=== PATIENT | female | born 1945 | race Caucasian/White ===

== ENCOUNTER → 2016-12-06 | Outpatient (REF) | payer MEDICARE, BC ==
[2016-12-06 18:11] LABS: MEAN CORPUSCULAR HEMOGLOBIN 28.7 pg (27.0-33.0); RED CELL DISTRIBUTION WIDTH 14.3 % (11.5-14.5); WHITE BLOOD COUNT 7.8 K/mm3 (4.0-10.0)
[2016-12-06 18:12] LABS: ALBUMIN 4.2 GM/DL (3.2-5.2); ALBUMIN/GLOBULIN RATIO 1.35 (1.00-1.93); ALKALINE PHOSPHATASE 84 U/L (45-117); ALT/SGPT 18 U/L (12-78); ANION GAP 8 MEQ/L (8-16); AST/SGOT 8 U/L (15-37); BILIRUBIN,TOTAL 0.8 MG/DL (0.2-1.0); BLOOD UREA NITROGEN 20 MG/DL (7-18); CALCIUM LEVEL 9.5 MG/DL (8.8-10.2); CARBON DIOXIDE LEVEL 31 MEQ/L (21-32); CHLORIDE LEVEL 102 MEQ/L (98-107); CHOLESTEROL LEVEL 318 MG/DL (<200); CREATININE FOR GFR 0.85 MG/DL (0.55-1.02); GLOMERULAR FILTRATION RATE > 60.0 (>39); GLUCOSE, FASTING 100 MG/DL (83-110); POTASSIUM SERUM 4.6 MEQ/L (3.5-5.1); SODIUM LEVEL 141 MEQ/L (136-145); TOTAL PROTEIN 7.3 GM/DL (6.4-8.2); TRIGLYCERIDES LEVEL 274 MG/DL (<150)
== END ==
LOC: M SFHCLERA 09:53
PROVIDERS: ATTEND Family Medicine
DX: E11.42 Type 2 diabetes mellitus with diabetic polyneuropathy (principal); E78.2 Mixed hyperlipidemia
CPT/HCPCS: 80053; 80061; 83036; 85027; G0463

== ENCOUNTER → 2017-03-06 | Outpatient (REF) | payer MEDICARE, BC ==
[2017-03-06 19:08] LABS: MEAN CORPUSCULAR HGB CONC 33.4 g/dl (32.0-36.5); MEAN CORPUSCULAR VOLUME 89.8 fl (80.0-96.0); RED CELL DISTRIBUTION WIDTH 13.5 % (11.5-14.5); WHITE BLOOD COUNT 8.5 K/mm3 (4.0-10.0)
[2017-03-06 19:10] LABS: ALBUMIN 4.4 GM/DL (3.2-5.2); ALBUMIN/GLOBULIN RATIO 1.26 (1.00-1.93); ALKALINE PHOSPHATASE 84 U/L (45-117); ALT/SGPT 21 U/L (12-78); ANION GAP 8 MEQ/L (8-16); AST/SGOT 15 U/L (15-37); BILIRUBIN,TOTAL 0.9 MG/DL (0.2-1.0); BLOOD UREA NITROGEN 14 MG/DL (7-18); CALCIUM LEVEL 9.6 MG/DL (8.8-10.2); CARBON DIOXIDE LEVEL 32 MEQ/L (21-32); CHLORIDE LEVEL 98 MEQ/L (98-107); CHOLESTEROL LEVEL 232 MG/DL (<200); CREATININE FOR GFR 0.72 MG/DL (0.55-1.02); GLOMERULAR FILTRATION RATE > 60.0 (>39); GLUCOSE, FASTING 112 MG/DL (83-110); POTASSIUM SERUM 4.2 MEQ/L (3.5-5.1); SODIUM LEVEL 138 MEQ/L (136-145); TOTAL PROTEIN 7.9 GM/DL (6.4-8.2); TRIGLYCERIDES LEVEL 265 MG/DL (<150)
== END ==
LOC: M SFHCLERA 11:06
PROVIDERS: ATTEND Family Medicine
DX: E11.9 Type 2 diabetes mellitus without complications (principal)
CPT/HCPCS: 80053; 80061; 83036; 85027; G0463

== ENCOUNTER → 2017-05-16 | Outpatient (CLI) | payer MEDICARE, BC ==
[2017-05-16 10:21] LABS: MEAN CORPUSCULAR HEMOGLOBIN 30.2 pg (27.0-33.0); MEAN CORPUSCULAR HGB CONC 33.7 g/dl (32.0-36.5); MEAN CORPUSCULAR VOLUME 89.7 fl (80.0-96.0); RED CELL DISTRIBUTION WIDTH 12.8 % (11.5-14.5); WHITE BLOOD COUNT 5.8 K/mm3 (4.0-10.0)
[2017-05-16 10:39] LABS: ALBUMIN 3.8 GM/DL (3.2-5.2); ALBUMIN/GLOBULIN RATIO 1.06 (1.00-1.93); ALKALINE PHOSPHATASE 70 U/L (45-117); ALT/SGPT 23 U/L (12-78); ANION GAP 6 MEQ/L (8-16); AST/SGOT 29 U/L (15-37); BILIRUBIN,TOTAL 0.6 MG/DL (0.2-1.0); BLOOD UREA NITROGEN 11 MG/DL (7-18); CALCIUM LEVEL 9.2 MG/DL (8.8-10.2); CARBON DIOXIDE LEVEL 32 MEQ/L (21-32); CHLORIDE LEVEL 104 MEQ/L (98-107); CHOLESTEROL LEVEL 193 MG/DL (<200); CREATININE FOR GFR 0.68 MG/DL (0.55-1.02); GLOMERULAR FILTRATION RATE > 60.0 (>39); GLUCOSE, FASTING 102 MG/DL (83-110); SODIUM LEVEL 142 MEQ/L (136-145); TOTAL PROTEIN 7.4 GM/DL (6.4-8.2); TRIGLYCERIDES LEVEL 274 MG/DL (<150)
--- NOTE | 2017-05-20 16:34 | REPMRS ---
Patient History The patient states she has not had a clinical breast exam in over a year. Patient is postmenopausal. No known family history of cancer. Digital Mammo Screening Bilat: May 16, 2017 - Exam #: [id number] Bilateral CC and MLO view(s) were taken. Technologist: Betty Spain, Technologist Prior study comparison: 2011, digital bilateral screening mammo, [facility]. August 02, 2008, digital bilateral screening mammo, performed at [facility]. FINDINGS: The breast tissue is heterogeneously dense. This may lower the sensitivity of mammography. There is a moderate amount of heterogeneously dense fibroglandular tissue which is fairly symmetric. There is no interval development of dominant mass, architectural distortion, or clustered microcalcification typical of malignancy. There has been no change in the appearance of the mammogram from the prior studies. ASSESSMENT: BI-RADS/ACR category 1 mammogram. Negative. Recommendation Routine screening mammogram of both breasts in 1 year (for women over age 40). This mammogram was interpreted with the aid of an FDA-approved computer-aided dectection system. Electronically Signed By: Freddy Burnett MD 05/20/17 [id number]
== END ==
LOC: M RAD 08:56 → M LAB 08:56
PROVIDERS: ATTEND Family Medicine
DX: Z12.31 Encounter for screening mammogram for malignant neoplasm of breast (principal); E78.00 Pure hypercholesterolemia, unspecified
CPT/HCPCS: 36415; 80053; 80061; 85027; G0202

== ENCOUNTER → 2017-12-12 | Outpatient (REF) | payer MEDICARE ==
[2017-12-12 19:19] LABS: ANION GAP 8 MEQ/L (8-16); BLOOD UREA NITROGEN 17 MG/DL (7-18); CALCIUM LEVEL 9.4 MG/DL (8.8-10.2); CARBON DIOXIDE LEVEL 32 MEQ/L (21-32); CHLORIDE LEVEL 100 MEQ/L (98-107); CREATININE FOR GFR 0.91 MG/DL (0.55-1.02); GLOMERULAR FILTRATION RATE > 60.0 (>39); GLUCOSE, FASTING 122 MG/DL (83-110); POTASSIUM SERUM 3.6 MEQ/L (3.5-5.1); SODIUM LEVEL 140 MEQ/L (136-145)
[2017-12-12 19:31] LABS: CREATININE, URINE 95.1 MG/DL; MALB URINE SIEMENS 6.6 MG/L; MAU/CREAT RATIO 6.9 MCG/MG (0.0-30.0)
[2017-12-12 19:40] LABS: ESTIMATED AVERAGE GLUCOSE 126 MG/DL (60-110)
== END ==
LOC: M SFHCLERA 15:23
DX: E11.42 Type 2 diabetes mellitus with diabetic polyneuropathy (principal); I10 Essential (primary) hypertension
CPT/HCPCS: 84443

== ENCOUNTER → 2018-01-10 | Outpatient (REF) | payer MEDICARE ==
[2018-01-10 11:45] LABS: BASO % 0.5 % (0.0-1.0); EOS # 0.1 10^3/uL (0.0-0.50); HEMATOCRIT 40.5 % (36.0-47.0); HEMOGLOBIN 13.8 g/dl (12.0-16.0); IMMATURE GRANULOCYTE % 0.4 % (0-3.0); LYMPH # 1.7 10^3/uL (1.5-4.5); LYMPH % 20.9 % (24.0-44.0); MEAN CORPUSCULAR HEMOGLOBIN 30.3 pg (27.0-33.0); MEAN CORPUSCULAR HGB CONC 34.1 g/dl (32.0-36.5); MEAN CORPUSCULAR VOLUME 88.8 fl (80.0-96.0); MONO # 0.6 10^3/uL (0.0-0.8); NEUTROPHILS # 5.6 10^3/uL (1.8-7.7); NEUTROPHILS % 70.2 % (36.0-66.0); PLATELET COUNT, AUTOMATED 342 10^3/uL (150-450); RED BLOOD COUNT 4.56 10^6/uL (4.00-5.40); RED CELL DISTRIBUTION WIDTH 12.6 % (11.5-14.5)
[2018-01-10 12:38] LABS: ANION GAP 8 MEQ/L (8-16); BLOOD UREA NITROGEN 13 MG/DL (7-18); CALCIUM LEVEL 9.5 MG/DL (8.8-10.2); CARBON DIOXIDE LEVEL 32 MEQ/L (21-32); CHLORIDE LEVEL 96 MEQ/L (98-107); CREATININE FOR GFR 0.87 MG/DL (0.55-1.30); GLOMERULAR FILTRATION RATE > 60.0 (>39); GLUCOSE, FASTING 111 MG/DL (70-100); POTASSIUM SERUM 4.1 MEQ/L (3.5-5.1); SODIUM LEVEL 136 MEQ/L (136-145)
== END ==
LOC: M LRY 11:28
DX: Z98.61 Coronary angioplasty status (principal); I10 Essential (primary) hypertension
CPT/HCPCS: 80048

== ENCOUNTER → 2018-05-12 | Outpatient (REF) | payer MEDICARE ==
[2018-05-12 12:27] LABS: ALBUMIN 3.8 GM/DL (3.2-5.2); ALBUMIN/GLOBULIN RATIO 1.19 (1.00-1.93); ALKALINE PHOSPHATASE 67 U/L (45-117); ALT/SGPT 25 U/L (12-78); ANION GAP 8 MEQ/L (8-16); AST/SGOT 14 U/L (7-37); BILIRUBIN,TOTAL 0.8 MG/DL (0.2-1.0); BLOOD UREA NITROGEN 16 MG/DL (7-18); CALCIUM LEVEL 9.3 MG/DL (8.8-10.2); CARBON DIOXIDE LEVEL 31 MEQ/L (21-32); CHLORIDE LEVEL 103 MEQ/L (98-107); CHOLESTEROL LEVEL 150 MG/DL (<200); CHOLESTEROL RISK RATIO 2.586 (<5); GLOMERULAR FILTRATION RATE > 60.0 (>39); GLUCOSE, FASTING 115 MG/DL (70-100); HDL CHOLESTEROL 58 MG/DL (>40); NON-HDL-C 92 MG/DL; POTASSIUM SERUM 4.6 MEQ/L (3.5-5.1); SODIUM LEVEL 142 MEQ/L (136-145); TRIGLYCERIDES LEVEL 150 MG/DL (<150)
[2018-05-12 17:32] LABS: ESTIMATED AVERAGE GLUCOSE 126 MG/DL (60-110)
== END ==
LOC: M SFHCLERA 09:26
DX: E11.42 Type 2 diabetes mellitus with diabetic polyneuropathy (principal)
CPT/HCPCS: 80053

== ENCOUNTER → 2018-05-30 | Outpatient (CLI) | payer MEDICARE ==
[2018-05-30 11:45] LABS: HEMATOCRIT 38.6 % (36.0-47.0); HEMOGLOBIN 12.9 g/dl (12.0-15.5); MEAN CORPUSCULAR HEMOGLOBIN 29.5 pg (27.0-33.0); MEAN CORPUSCULAR HGB CONC 33.4 g/dl (32.0-36.5); MEAN CORPUSCULAR VOLUME 88.3 fl (80.0-96.0); PLATELET COUNT, AUTOMATED 292 10^3/uL (150-450); RED BLOOD COUNT 4.37 10^6/uL (4.00-5.40); RED CELL DISTRIBUTION WIDTH 12.8 % (11.5-14.5)
[2018-05-30 12:18] LABS: CHOLESTEROL LEVEL 259 MG/DL (<200); CPK CREATINE PHOSPHOKINASE 64 U/L (26-192); HDL CHOLESTEROL 50 MG/DL (>40); LDL CHOLESTEROL 148.2 MG/DL (<100); NON-HDL-C 209 MG/DL; TRIGLYCERIDES LEVEL 304 MG/DL (<150)
== END ==
LOC: M LRY 08:07
DX: I25.10 Atherosclerotic heart disease of native coronary artery without angina pectoris (principal)
CPT/HCPCS: 82550

== ENCOUNTER → 2018-10-28 | Outpatient (REF) | payer MEDICARE ==
[2018-10-28 16:57] LABS: ALBUMIN 3.9 GM/DL (3.2-5.2); ALBUMIN/GLOBULIN RATIO 1.11 (1.00-1.93); ALKALINE PHOSPHATASE 77 U/L (45-117); ALT/SGPT 20 U/L (12-78); ANION GAP 8 MEQ/L (8-16); AST/SGOT 13 U/L (7-37); BILIRUBIN,TOTAL 0.3 MG/DL (0.2-1.0); BLOOD UREA NITROGEN 12 MG/DL (7-18); CALCIUM LEVEL 9.3 MG/DL (8.8-10.2); CARBON DIOXIDE LEVEL 32 MEQ/L (21-32); CHLORIDE LEVEL 100 MEQ/L (98-107); CREATININE FOR GFR 0.84 MG/DL (0.55-1.30); GLOMERULAR FILTRATION RATE > 60.0 (>39); GLUCOSE, FASTING 89 MG/DL (70-100); POTASSIUM SERUM 4.2 MEQ/L (3.5-5.1); SODIUM LEVEL 140 MEQ/L (136-145); TOTAL PROTEIN 7.4 GM/DL (6.4-8.2)
[2018-10-28 17:10] LABS: ESTIMATED AVERAGE GLUCOSE 128 MG/DL (60-110); HEMOGLOBIN A1c 6.1 %
== END ==
LOC: M SFHCLERA 10:04
DX: E11.42 Type 2 diabetes mellitus with diabetic polyneuropathy (principal); I10 Essential (primary) hypertension
CPT/HCPCS: 80053

== ENCOUNTER → 2018-10-28 | Outpatient (CLI) | payer MEDICARE | LOC: M LRY 10:20 | DX: M25.552 Pain in left hip (principal) | CPT/HCPCS: 73502 ==

== ENCOUNTER 2018-11-23 13:59 | Emergency (ER) | payer MEDICARE ==
[~2018-11-23] VITALS: Ht 162.6 cm; Wt 79.0 kg
[2018-11-23] MEDS ORDERED: GI COCKTAIL 50ML BTL(HYOSCYAMINE/MAALOX/LIDOCAINE VISCOUS)(1:3:1) PO ONE (14:30)
[2018-11-23] MEDS ORDERED: METH75TA PO (14:35)
[2018-11-23] MEDS ORDERED: CITA-230 PO (14:35)
[2018-11-23] MEDS ORDERED: METO1TAB7 PO (14:35)
[2018-11-23] MEDS ORDERED: POTA1TAB23 PO (14:35)
[2018-11-23] MEDS ORDERED: FAMO40TA3 PO (14:35)
[2018-11-23 14:45] LABS: BASO % 0.3 % (0.0-1.0); EOS # 0.1 10^3/uL (0.0-0.50); EOS % 1.2 % (0.0-3.0); LYMPH # 1.7 10^3/uL (1.5-4.5); LYMPH % 16.2 % (24.0-44.0); MEAN CORPUSCULAR HEMOGLOBIN 30.2 pg (27.0-33.0); MEAN CORPUSCULAR HGB CONC 33.3 g/dl (32.0-36.5); MEAN CORPUSCULAR VOLUME 90.5 fl (80.0-96.0); MONO % 9.2 % (0.0-5.0); NEUTROPHILS # 7.5 10^3/uL (1.8-7.7); NEUTROPHILS % 72.6 % (36.0-66.0); PLATELET COUNT, AUTOMATED 297 10^3/uL (150-450); RED BLOOD COUNT 4.31 10^6/uL (4.00-5.40); WHITE BLOOD COUNT 10.3 10^3/uL (4.0-10.0)
[2018-11-23 15:02] LABS: ALBUMIN 3.6 GM/DL (3.2-5.2); ALT/SGPT 19 U/L (12-78); BILIRUBIN,DIRECT < 0.1 MG/DL (0.0-0.2); BILIRUBIN,TOTAL 0.6 MG/DL (0.2-1.0); BLOOD UREA NITROGEN 15 MG/DL (7-18); CALCIUM LEVEL 8.7 MG/DL (8.8-10.2); CARBON DIOXIDE LEVEL 29 MEQ/L (21-32); CHLORIDE LEVEL 103 MEQ/L (98-107); CK-MB VALUE MASS < 1.0 NG/ML (<3.6); CPK CREATINE PHOSPHOKINASE 60 U/L (26-192); CREATININE FOR GFR 0.74 MG/DL (0.55-1.30); GLOMERULAR FILTRATION RATE > 60.0 (>39); GLUCOSE, FASTING 90 MG/DL (70-100); LIPASE 172 U/L (73-393); MB/CK RELATIVE INDEX 1.67 (< OR =4); NT-PRO BNP 254 PG/ML (<125); POTASSIUM SERUM 4.4 MEQ/L (3.5-5.1); SODIUM LEVEL 138 MEQ/L (136-145); TOTAL PROTEIN 7.2 GM/DL (6.4-8.2); TROPONIN I < 0.02 NG/ML (< 0.10)
--- NOTE | 2018-11-23 15:10 | REP ---
Clinical: Acute chest pain . Comparison: 07/14/2015, 09/19/2016 . Findings: The mediastinum and cardiac silhouette are stable and within normal limits for portable technique. Evidence of prior coronary stenting. The lung baltazar are clear without acute consolidation, effusion, or pneumothorax. Skeletal structures are intact. Impression: No acute cardiopulmonary process appreciated. Electronically Signed by Seferino Walton MD 11/23/2018 03:01 P
[2018-11-23] MEDS ORDERED: MORPHINE 2 MG/ML 1ML SYRINGE (J2270) IV ONE (15:15)
[2018-11-23] MEDS ORDERED: ISOVUE-370 76% 100ML VIAL (Q9967) As Ordered ONE (15:23)
[2018-11-23] MEDS ORDERED: METF500T13 PO (15:45)
--- NOTE | 2018-11-23 15:49 | REP ---
Clinical: Upper abdominal pain. Technique: Axial contrast enhanced images from the lung bases to the pubic symphysis using 100 ml Isovue 370 intravenous contrast material with coronal and sagittal re-formations. Findings: Lung bases are clear. Hiatal hernia at the gastroesophageal junction noted. Fatty infiltration to the liver is appreciated. The gallbladder demonstrates wall thickening and enhancement suggesting acute cholecystitis and correlation is recommended. Spleen, pancreas, bilateral adrenal glands and kidneys are within normal limits. Incidental 5.3 cm simple left renal cyst identified. The enteric system is without obstruction or acute inflammatory process. Scattered colonic diverticula noted without acute diverticulitis. Pelvis demonstrates normal bladder and age-appropriate uterus/adnexa. Abdominal aorta without aneurysm or dissection. No ascites. No adenopathy. No free air. Musculoskeletal structures demonstrate age-related changes without focal osseous abnormality. Impression: 1. Gallbladder wall thickening with enhancement suggesting acute cholecystitis and correlation is recommended. 2. Hepatosteatosis. 3. 5.3 cm simple left renal cyst. 4. Scattered colonic diverticula without acute diverticulitis. Electronically Signed by Seferino Walton MD 11/23/2018 03:40 P
[2018-11-23] MEDS ORDERED: ONDANSETRON 4MG/2ML VIAL (J2405) As Ordered ONE (15:58)
[2018-11-23] MEDS ORDERED: ONDANSETRON 4MG/2ML VIAL (J2405) IV ONE (16:00)
[2018-11-23] MEDS ORDERED: PIPERACILLIN/TAZOBACTAM SOD 3.375 GM in D5W MINI-BAG PLUS 50 ML IV ONE (16:00)
[2018-11-23] MEDS ORDERED: NS 1,000 ML IV ONE (16:00)
[2018-11-23] MEDS ORDERED: HYDROMORPHONE HCL 0.5 MG/ 0.5 ML SYRINGE (J1170 PER 1) IV PRN (16:00)
[2018-11-23 17:10] LABS: INR 0.96; PROTHROMBIN TIME 12.9 SECONDS (12.1-14.4)
[2018-11-23] MEDS ORDERED: AUGM875T28 PO (18:33)
[2018-11-23] MEDS ORDERED: OXYC1TAB23 PO (18:33)
[2018-11-23] MEDS ORDERED: ZOFR4TAB14 PO (18:33)
[2018-11-23 18:37] VITALS: BP 128/76
--- NOTE | 2018-11-24 07:37 | ED PDOC ---
Post-Departure Follow-Up radiology report faxed to Violeta Manzo MD Nov 24, 2018 07:37
--- NOTE | 2018-11-24 13:43 | ECGEPIP ---
Stationary ECG Study [facility] - ED Test Date: 2018-11-23 Pat Name: YOSELYN JACOBSON Department: Room: - Gender: F Program Counselor: debbi : 1945 Requested By: EL Main Order Number: [id number] Reading MD: Violeta Gomez Measurements Intervals [place]: 77 P: 46 GA: 187 QRS: -12 QRSD: 84 T: 21 QT: 395 QTc: 449 Interpretive Statements SINUS RHYTHM WITH OCCASIONAL VENTRICULAR PREMATURE COMPLEXES MINIMAL VOLTAGE CRITERIA FOR LVH, CONSIDER NORMAL VARIANT INFERIOR MYOCARDIAL INFARCTION, PROBABLY OLD WITH POSTERIOR EXTENSION INCREASED ECTOPY COMPARED 09/19/16 Electronically Signed On 11-24-2018 13:43:29 EST by Violeta Gomez
== END 2018-11-23 18:52 | disposition home or self-care (01) ==
LOC: EDBD 13:59 → M ED 13:59
DX: K81.9 Cholecystitis, unspecified (principal); R06.02 Shortness of breath; E11.40 Type 2 diabetes mellitus with diabetic neuropathy, unspecified; I10 Essential (primary) hypertension; E78.5 Hyperlipidemia, unspecified; K21.9 Gastro-esophageal reflux disease without esophagitis; Z95.5 Presence of coronary angioplasty implant and graft; Z88.2 Allergy status to sulfonamides; Z88.8 Allergy status to other drugs, medicaments and biological substances; Z79.899 Other long term (current) drug therapy; Z79.84 Long term (current) use of oral hypoglycemic drugs
CPT/HCPCS: 71045; 74177; 80048; 80076; 81001; 82550; 82553; 83690; 83880; 84443; 84484; 85025; 85610; 85730; 87040; 87077; 87086; 93005; 93041; 94760; 96374; 96375; 99285; J2270; J2405; J2543; Q9967

== ENCOUNTER → 2018-12-09 | Outpatient (REF) | payer MEDICARE ==
[~2018-12-09] MED LIST: AUGM875T28 PO; CITA-230 PO; FAMO40TA3 PO; METF500T13 PO; METH75TA PO; METO1TAB7 PO; OXYC1TAB23 PO; POTA1TAB23 PO; ZOFR4TAB14 PO
[2018-12-09 17:15] LABS: BASO % 0.4 % (0.0-1.0); EOS % 1.1 % (0.0-3.0); HEMATOCRIT 39.8 % (36.0-47.0); HEMOGLOBIN 13.3 g/dl (12.0-15.5); LYMPH % 24.8 % (24.0-44.0); MEAN CORPUSCULAR HEMOGLOBIN 29.5 pg (27.0-33.0); MEAN CORPUSCULAR HGB CONC 33.4 g/dl (32.0-36.5); MEAN CORPUSCULAR VOLUME 88.2 fl (80.0-96.0); MONO % 8.6 % (0.0-5.0); NEUTROPHILS % 64.4 % (36.0-66.0); PLATELET COUNT, AUTOMATED 374 10^3/uL (150-450); RED BLOOD COUNT 4.51 10^6/uL (4.00-5.40); WHITE BLOOD COUNT 9.7 10^3/uL (4.0-10.0)
[2018-12-09 17:16] LABS: EOS # 0.1 10^3/uL (0.0-0.50); LYMPH # 2.4 10^3/uL (1.5-4.5); MONO # 0.8 10^3/uL (0.0-0.8); NEUTROPHILS # 6.2 10^3/uL (1.8-7.7)
[2018-12-09 17:27] LABS: ALBUMIN 3.9 GM/DL (3.2-5.2); ALT/SGPT 21 U/L (12-78); BILIRUBIN,TOTAL 0.4 MG/DL (0.2-1.0); BLOOD UREA NITROGEN 10 MG/DL (7-18); CALCIUM LEVEL 9.3 MG/DL (8.8-10.2); CARBON DIOXIDE LEVEL 29 MEQ/L (21-32); CHLORIDE LEVEL 100 MEQ/L (98-107); CREATININE FOR GFR 0.84 MG/DL (0.55-1.30); GLOMERULAR FILTRATION RATE > 60.0 (>39); GLUCOSE, FASTING 91 MG/DL (70-100); POTASSIUM SERUM 4.2 MEQ/L (3.5-5.1); SODIUM LEVEL 137 MEQ/L (136-145)
== END ==
LOC: M SFHCLERA 14:33
PROVIDERS: ATTEND Family Medicine
DX: Z01.818 Encounter for other preprocedural examination (principal)

== ENCOUNTER 2018-12-26 08:30 | Day surgery (SDC) | payer MEDICARE ==
[~2018-12-26] VITALS: Ht 162.6 cm; Wt 75.7 kg
[~2018-12-26 08:30] MED LIST changes: +ASPI81TA85 PO; +B-650TAB2 PO; +GABA-845 PO; +LR 1,000 ML IV ONE; +MULTTAB12 PO; +NITR0.3S SL; +OMEG1CAP16 PO; +PLAV1TAB2 PO; +PROAAER10 INH; +VOLT1GEL15 TD
[2018-12-26] MEDS ORDERED: ONDANSETRON 4MG/2ML VIAL (J2405) As Ordered ONE (09:39)
[2018-12-26] MEDS ORDERED: NEOSTIGMINE 10 MG/10 ML VIAL (J2710) As Ordered ONE (09:39)
[2018-12-26] MEDS ORDERED: GLYCOPYRROLATE INJ 0.2 MG/ML 2 ML VIAL As Ordered ONE (09:39)
[2018-12-26] MEDS ORDERED: LIDOCAINE 2% INJ 100 MG/5 ML SDV (FOR ANES.) As Ordered ONE (09:39)
[2018-12-26] MEDS ORDERED: PROPOFOL 200 MG/20 ML VIAL As Ordered ONE (09:39)
[2018-12-26] MEDS ORDERED: ROCURONIUM BROMIDE 50 MG/5 ML VIAL As Ordered ONE (09:39)
[2018-12-26] MEDS ORDERED: dexameTHASONE 4 MG/ML 1ML VIAL (J1100) As Ordered ONE (09:39)
[2018-12-26] MEDS ORDERED: MIDAZOLAM INJ 2 MG/2 ML VIAL (J2250) As Ordered ONE (09:40)
[2018-12-26] MEDS ORDERED: fentaNYL 100 MCG/2 ML INJECTION (J3010) As Ordered ONE ×2 (09:40→11:36)
[2018-12-26] MEDS ORDERED: BUPIVACAINE/EPIN 0.25% 30 ML VIAL As Ordered ONE (09:52)
[2018-12-26] MEDS ORDERED: PERCOCET 5MG/325MG TAB As Ordered ONE (11:36)
[2018-12-26] MEDS: PERCOCET 5MG/325MG TAB PO PRN ×2 (11:38→12:08)
[2018-12-26] MEDS ORDERED: ONDANSETRON 4MG/2ML VIAL (J2405) IV PRN (11:45)
[2018-12-26] MEDS ORDERED: LR 1,000 ML IV SCH (11:45)
[2018-12-26] MEDS ORDERED: fentaNYL 100 MCG/2 ML INJECTION (J3010) IV PRN (11:45)
[2018-12-26] MEDS ORDERED: NORCO, ANEXSIA 5/325MG TABLET (HYDROcodone/ACETAMINOPHEN) PO PRN (12:00)
[2018-12-26 13:00] VITALS: BP 128/65
--- NOTE | 2018-12-26 15:25 | RO ---
DATE OF PROCEDURE: 12/26/2018 PREOPERATIVE DIAGNOSIS: Acute cholecystitis. POSTOPERATIVE DIAGNOSIS: Acute cholecystitis. PROCEDURE: Laparoscopic cholecystectomy. SURGEON: Dr. Dey. SALES OPERATIONS ANALYST: None. ANESTHESIA: General. ESTIMATED BLOOD LOSS: 5 COMPLICATIONS: None. INDICATIONS FOR PROCEDURE: The patient 73-year-old female who presents with right upper quadrant abdominal pain found to have acute cholecystitis and recommendation was to proceed with laparoscopic possible open cholecystectomy. Risks, benefits of the procedure not limited but including bleeding, infection, hernia formation, damage to surrounding structure need for further surgery were discussed in detail with the patient informed was obtained procedure was planned. PROCEDURE: The patient brought back to operating room six after sufficient sedation abdomen sterilely prepped and draped. Next a time out was done confirm proper patient and proper procedure. Following that stab incision made in left lower quadrant. Veress needle was inserted and the abdomen was insufflated to 15 mmHg. Next a 5 mm supraumbilical midline incision made and a 5 mm Optiview port was used to gain access to the abdomen. Once the abdomen was entered and the site was exam was no signs of any injury. Veress needle was then removed. 11 mm port placed subxiphoid and two 5 mm ports were then placed in the right upper quadrant. Fundus of gallbladder grasped, elevated up towards right shoulder. Cystic duct and cystic artery were dissected free using blunt dissection. Once they are both clearly identified they are both doubly clipped and cut. Gallbladder was then removed from gallbladder fossa using electrocautery brought out through the subxiphoid port site in a 10 mm EndoCatch bag. Abdomen was then desufflated. Skin incisions closed 4-0 Vicryl subcuticular sutures. The abdomen cleaned and dried. Steri-Strips, 4x4 and tape were applied thus ending procedure.
== END 2018-12-26 13:25 | disposition home or self-care (01) ==
LOC: M SDC 08:30
PROVIDERS: ATTEND Surgery
DX: K81.1 Chronic cholecystitis (principal); I25.10 Atherosclerotic heart disease of native coronary artery without angina pectoris; I10 Essential (primary) hypertension; E11.40 Type 2 diabetes mellitus with diabetic neuropathy, unspecified; Z98.61 Coronary angioplasty status; K21.9 Gastro-esophageal reflux disease without esophagitis; Z88.2 Allergy status to sulfonamides; Z88.8 Allergy status to other drugs, medicaments and biological substances; I25.2 Old myocardial infarction; K90.0 Celiac disease; Z79.82 Long term (current) use of aspirin; Z79.01 Long term (current) use of anticoagulants; Z79.51 Long term (current) use of inhaled steroids
CPT/HCPCS: 47562; 88304; J1100; J2250; J2405; J2710; J3010

== ENCOUNTER → 2019-06-01 | Outpatient (REF) | payer MEDICARE ==
[~2019-06-01] MED LIST changes: -CITA-230 PO; +CITA20TA7 PO; -LR 1,000 ML IV ONE
[2019-06-01 14:22] LABS: ALBUMIN 4.2 GM/DL (3.2-5.2); ALT/SGPT 22 U/L (12-78); BILIRUBIN,TOTAL 0.7 MG/DL (0.2-1.0); BLOOD UREA NITROGEN 13 MG/DL (7-18); CALCIUM LEVEL 9.7 MG/DL (8.8-10.2); CARBON DIOXIDE LEVEL 31 MEQ/L (21-32); CHLORIDE LEVEL 100 MEQ/L (98-107); CHOLESTEROL LEVEL 171 MG/DL (<200); CHOLESTEROL RISK RATIO 2.803 (<5); CREATININE FOR GFR 0.93 MG/DL (0.55-1.30); GLOMERULAR FILTRATION RATE > 60.0 (>39); GLUCOSE, FASTING 108 MG/DL (70-100); HDL CHOLESTEROL 61 MG/DL (>40); LDL CHOLESTEROL 63 MG/DL (<100); NON-HDL-C 110 MG/DL; SODIUM LEVEL 138 MEQ/L (136-145); TOTAL PROTEIN 7.6 GM/DL (6.4-8.2); TRIGLYCERIDES LEVEL 233 MG/DL (<150)
[2019-06-01 14:30] LABS: HEMOGLOBIN A1c 6.4 %
[2019-06-01 14:40] LABS: CREATININE, URINE 38.4 MG/DL; MALB URINE SIEMENS < 5.0 MG/L
== END ==
LOC: M SFHCLERA 10:50
PROVIDERS: ATTEND Family Medicine
DX: E11.42 Type 2 diabetes mellitus with diabetic polyneuropathy (principal)

== ENCOUNTER → 2019-06-03 | Outpatient (CLI) | payer MEDICARE ==
[~2019-06-03] MED LIST changes: +METH750T2 PO; -METH75TA PO
== END ==
LOC: M LAB 08:25
PROVIDERS: ATTEND Family Medicine
DX: R10.13 Epigastric pain (principal)

== ENCOUNTER → 2019-06-30 | Outpatient (CLI) | payer MEDICARE ==
--- NOTE | 2019-06-30 09:33 | REP ---
ULTRASOUND ANTERIOR ABDOMINAL WALL: Real-time sonographic evaluation of the anterior abdominal wall performed to evaluate for a possible hernia in the midline. The midline of the anterior abdominal wall is imaged sonographically at rest and with Valsalva maneuver. No anterior abdominal wall hernia is seen. IMPRESSION: No sonographic evidence of anterior abdominal wall hernia. Electronically Signed by Lionel Sosa MD 06/30/2019 07:18 P
== END ==
LOC: M RAD 06:57
PROVIDERS: ATTEND Surgery
DX: Z87.19 Personal history of other diseases of the digestive system (principal)

== ENCOUNTER → 2019-06-30 | Outpatient (CLI) | payer MEDICARE ==
--- NOTE | 2019-06-30 11:12 | REPMRS ---
Patient History The patient states she has not had a clinical breast exam in over a year. Patient is postmenopausal. No known family history of cancer. No Hormone Replacement Therapy 3D TOMOSYNTHESIS WAS PERFORMED. [facility] lifetime risk for breast cancer is 4.4%. Digital Woman Screen Mammo: June 30, 2019 - Exam #: [id number] Bilateral CC and MLO view(s) were taken. Technologist: Pilar Gonsalez, Technologist Prior study comparison: May 16, 2017, bilateral digital mammo screening bilat, performed at [facility]. 2011, digital bilateral screening mammo, performed at [facility]. FINDINGS: The breast tissue is heterogeneously dense. This may lower the sensitivity of mammography. There has been no change in the appearance of the mammogram from the prior studies. There is a moderate amount of residual fibroglandular tissue which is fairly symmetric. There is no interval development of dominant mass, areas of architectural distortion, or clustered microcalcification typical of malignancy. Assessment: BI-RADS/ACR category 1 mammogram. Negative Mammogram. Recommendation Routine screening mammogram in 1 year (for women over age 40). This mammogram was interpreted with the aid of an FDA-approved computer-aided dectection system. Electronically Signed By: Lionel Sosa MD 06/30/19 [id number]
--- NOTE | 2019-07-08 15:38 | DEXA ---
AP SPINE L1 - L4 1.409 1.7 3.4 LT FEMUR TOTAL 1.033 0.2 1.8 LT NECK 1.000 -0.3 1.5 RT FEMUR TOTAL 1.054 0.4 2.0 RT NECK 0.986 -0.4 1.4 TOTAL BODY TOTAL OTHER COMMENTS: Normal bone densitometry of the spine and hips. The density of the spine has decreased 5.2% since 10/19/2013. The density of the left hip has decreased 7.9% since 10/19/2013. The density of the right hip has decreased 4.1% since 10/19/2013. The decreased density of the spine does represent a significant change. The decreased density of the left hip does represent a significant change. The decreased density of the right hip does represent significant change. FOLLOW-UP: Recommendation for the next bone density exam: 5 years. JULITA
== END ==
LOC: M WHC 09:53
PROVIDERS: ATTEND Family Medicine
DX: Z12.31 Encounter for screening mammogram for malignant neoplasm of breast (principal); Z13.820 Encounter for screening for osteoporosis; Z78.0 Asymptomatic menopausal state

== ENCOUNTER → 2019-07-02 | Outpatient (REF) | payer MEDICARE | LOC: M SFHCLERA 11:26 | PROVIDERS: ATTEND Family Medicine | DX: K58.9 Irritable bowel syndrome, unspecified (principal) ==

== ENCOUNTER → 2019-12-07 | Outpatient (REF) | payer MEDICARE, OTHER ==
[2019-12-07 18:10] LABS: ALBUMIN 4.3 GM/DL (3.2-5.2); ALT/SGPT 21 U/L (12-78); BILIRUBIN,TOTAL 0.5 MG/DL (0.2-1.0); BLOOD UREA NITROGEN 16 MG/DL (7-18); CALCIUM LEVEL 9.5 MG/DL (8.8-10.2); CARBON DIOXIDE LEVEL 30 MEQ/L (21-32); CHLORIDE LEVEL 101 MEQ/L (98-107); CREATININE FOR GFR 0.85 MG/DL (0.55-1.30); GLOMERULAR FILTRATION RATE > 60.0 (>39); GLUCOSE, FASTING 99 MG/DL (70-100); POTASSIUM SERUM 4.5 MEQ/L (3.5-5.1); SODIUM LEVEL 139 MEQ/L (136-145); TOTAL PROTEIN 7.9 GM/DL (6.4-8.2)
== END ==
LOC: M SFHCLERA 11:16
PROVIDERS: ATTEND Family Medicine
DX: E11.42 Type 2 diabetes mellitus with diabetic polyneuropathy (principal)

== ENCOUNTER → 2020-04-25 | Outpatient (CLI) | payer MEDICARE ==
[2020-04-25 11:40] LABS: ALBUMIN 3.8 GM/DL (3.2-5.2); ALT/SGPT 22 U/L (12-78); BILIRUBIN,TOTAL 0.4 MG/DL (0.2-1.0); BLOOD UREA NITROGEN 11 MG/DL (7-18); CALCIUM LEVEL 9.3 MG/DL (8.8-10.2); CARBON DIOXIDE LEVEL 31 MEQ/L (21-32); CHLORIDE LEVEL 102 MEQ/L (98-107); CHOLESTEROL LEVEL 186 MG/DL (<200); CHOLESTEROL RISK RATIO 3.647 (<5); CREATININE FOR GFR 0.83 MG/DL (0.55-1.30); GLOMERULAR FILTRATION RATE > 60.0 (>39); GLUCOSE, FASTING 114 MG/DL (70-100); HDL CHOLESTEROL 51 MG/DL (>40); LDL CHOLESTEROL 76 MG/DL (<100); NON-HDL-C 135 MG/DL; POTASSIUM SERUM 4.2 MEQ/L (3.5-5.1); SODIUM LEVEL 141 MEQ/L (136-145); TOTAL PROTEIN 7.2 GM/DL (6.4-8.2); TRIGLYCERIDES LEVEL 294 MG/DL (<150)
== END ==
LOC: M LRY 09:22
PROVIDERS: ATTEND Nurse Practitioner Family
DX: E78.5 Hyperlipidemia, unspecified (principal); I25.110 Atherosclerotic heart disease of native coronary artery with unstable angina pectoris

== ENCOUNTER → 2020-04-26 | Outpatient (CLI) | payer MEDICARE ==
--- NOTE | 2020-04-26 23:12 | REP ---
REASON: History of atherosclerotic disease. Patchy echogenic material is seen along the carotid arterial pena. RIGHT LEFT CCA systolic 70.8 cm/s 83.0 cm/s CCA diastolic 18.6 cm/s 24.6 cm/s ICA systolic 82.0 cm/s 105.0 cm/s ICA diastolic 26.1 cm/s 32.2 cm/s ICA/CCA ratio 1.16 1.27 Analysis of the spectral waveforms shows now significant spectral broadening. There is antegrade flow seen in both vertebral arteries. IMPRESSION: According to the NASCET consensus criteria, there is less than 50% stenosis of the internal carotid artery bilaterally.
== END ==
LOC: M WHC 10:08
PROVIDERS: ATTEND Nurse Practitioner Family
DX: I65.23 Occlusion and stenosis of bilateral carotid arteries (principal)

== ENCOUNTER → 2020-05-13 | Outpatient (REF) | payer MEDICARE ==
[2020-05-13 16:27] LABS: BLOOD UREA NITROGEN 13 MG/DL (7-18); CALCIUM LEVEL 9.4 MG/DL (8.8-10.2); CARBON DIOXIDE LEVEL 32 MEQ/L (21-32); CHLORIDE LEVEL 102 MEQ/L (98-107); GLOMERULAR FILTRATION RATE > 60.0 (>39); GLUCOSE, FASTING 142 MG/DL (70-100); POTASSIUM SERUM 4.4 MEQ/L (3.5-5.1); SODIUM LEVEL 140 MEQ/L (136-145)
[2020-05-13 16:50] LABS: MALB URINE SIEMENS 14.6 MG/L; MAU/CREAT RATIO 5.9 MCG/MG (0.0-30.0)
[2020-05-13 17:20] LABS: VITAMIN B12 LEVEL 1090 PG/ML (247-911)
[2020-05-13 18:12] LABS: HEMOGLOBIN A1c 6.2 %
== END ==
LOC: M SFHCLERA 13:06
PROVIDERS: ATTEND Family Medicine
DX: E11.9 Type 2 diabetes mellitus without complications (principal); I45.9 Conduction disorder, unspecified

== ENCOUNTER → 2020-12-20 | Outpatient (CLI) | payer MEDICARE ==
[~2020-12-20] MED LIST changes: -ASPI81TA85 PO; +ASPI81TA86 PO; +METH-1165 PO; -METH750T2 PO
--- NOTE | 2020-12-20 12:04 | REP ---
INDICATION: GASTROPARESIS W/ EPIGASTRIC PAIN. COMPARISON: None. TECHNIQUE/RADIOTRACER AND DOSE: 1.05 mCi of Technetium-99m sulfur colloid was ingested in two scrambled eggs and 6 ounces of water and sequential anterior and posterior images are acquired for an 89-minute imaging observation period. Regions of interest are drawn around the stomach to plot gastric emptying. FINDINGS: Expected T1/2 is 90 minutes. Forty% emptying is observed in this patient during the 89-minute imaging observation period, for a calculated T1/2 in this patient of 116 minutes. IMPRESSION: Mildly delayed gastric emptying.. <Electronically signed by Freddy Burnett > 12/20/20 1202
== END ==
LOC: M RAD 09:18
PROVIDERS: ATTEND Internal Medicine Gastroenterology
DX: G31.84 Mild cognitive impairment of uncertain or unknown etiology (principal); R10.13 Epigastric pain
CPT/HCPCS: 78264; A9541

== ENCOUNTER → 2021-01-12 | Outpatient (CLI) | payer MEDICARE ==
[~2021-01-12] MED LIST changes: +DICY20TA11 PO; +HYDR-3490 PO; +PANT40TA29 PO
== END ==
LOC: M LABSMTC 11:25
PROVIDERS: ATTEND Anesthesiology
DX: Z01.812 Encounter for preprocedural laboratory examination (principal); Z20.822 Contact with and (suspected) exposure to COVID-19

== ENCOUNTER 2021-01-17 06:41 | Day surgery (SDC) | payer MEDICARE ==
[~2021-01-17] VITALS: Ht 162.6 cm; Wt 72.6 kg
[~2021-01-17 06:41] MED LIST changes: +NS 1,000 ML IV ONE
--- OUTSIDE RECORDS SUMMARY | 2021-01-17 06:46 | CCD ---
Author Author [facility] Organization [facility] Address Unknown Phone Unavailable Care Team Providers Care Travel Writer Name Role Phone Fons, M Deena ONCOLOGY REGISTRAR Unavailable Unavailable Fons, M Deena ONCOLOGY REGISTRAR Unavailable Unavailable Fons, M Deena ONCOLOGY REGISTRAR Unavailable Unavailable Fons, M Deena ONCOLOGY REGISTRAR Unavailable Unavailable Fons, M Deena ONCOLOGY REGISTRAR Unavailable Unavailable Fons, M Deena ONCOLOGY REGISTRAR Unavailable Unavailable Fons, M Deena ONCOLOGY REGISTRAR Unavailable Unavailable Fons, M Deena ONCOLOGY REGISTRAR Unavailable Unavailable Fons, M Deena ONCOLOGY REGISTRAR Unavailable Unavailable Fons, M Deena ONCOLOGY REGISTRAR Unavailable Unavailable Fons, M Deena ONCOLOGY REGISTRAR Unavailable Unavailable Fons, M Deena ONCOLOGY REGISTRAR Unavailable Unavailable Fons, M Deena ONCOLOGY REGISTRAR Unavailable Unavailable Fons, M Deena ONCOLOGY REGISTRAR Unavailable Unavailable Fons, M Deena ONCOLOGY REGISTRAR Unavailable Unavailable Fons, M Deena ONCOLOGY REGISTRAR Unavailable Unavailable Fons, M Deena ONCOLOGY REGISTRAR Unavailable Unavailable Fons, M Deena ONCOLOGY REGISTRAR Unavailable Unavailable Fons, M Deena ONCOLOGY REGISTRAR Unavailable Unavailable Fons, M Deena ONCOLOGY REGISTRAR Unavailable Unavailable Fons, M Deena ONCOLOGY REGISTRAR Unavailable Unavailable Fons, M Deena ONCOLOGY REGISTRAR Unavailable Unavailable Fons, M Deena ONCOLOGY REGISTRAR Unavailable Unavailable Fons, M Deena ONCOLOGY REGISTRAR Unavailable Unavailable Fons, M Deena ONCOLOGY REGISTRAR Unavailable Unavailable Fons, M Deena ONCOLOGY REGISTRAR Unavailable Unavailable Fons, M Deena ONCOLOGY REGISTRAR Unavailable Unavailable Fons, M Deena ONCOLOGY REGISTRAR Unavailable Unavailable Fons, M Deena ONCOLOGY REGISTRAR Unavailable Unavailable Fons, M Deena ONCOLOGY REGISTRAR Unavailable Unavailable Fons, M Deena ONCOLOGY REGISTRAR Unavailable Unavailable Fons, M Deena ONCOLOGY REGISTRAR Unavailable Unavailable Fons, M Deena ONCOLOGY REGISTRAR Unavailable Unavailable Fons, M Deena ONCOLOGY REGISTRAR Unavailable Unavailable Fons, M Deena ONCOLOGY REGISTRAR Unavailable Unavailable Fons, M Deena ONCOLOGY REGISTRAR Unavailable Unavailable Fons, M Deena ONCOLOGY REGISTRAR Unavailable Unavailable Fons, M Deena ONCOLOGY REGISTRAR Unavailable Unavailable Fons, M Deena ONCOLOGY REGISTRAR Unavailable Unavailable Fons, M Deena ONCOLOGY REGISTRAR Unavailable Unavailable Fons, M Deena ONCOLOGY REGISTRAR Unavailable Unavailable Fons, M Deena ONCOLOGY REGISTRAR Unavailable Unavailable Fons, M Deena ONCOLOGY REGISTRAR Unavailable Unavailable Fons, M Deena ONCOLOGY REGISTRAR Unavailable Unavailable Fons, M Deena ONCOLOGY REGISTRAR Unavailable Unavailable Fons, M Deena ONCOLOGY REGISTRAR Unavailable Unavailable Fons, M Deena ONCOLOGY REGISTRAR Unavailable Unavailable Fons, M Deena ONCOLOGY REGISTRAR Unavailable Unavailable Fons, M Deena ONCOLOGY REGISTRAR Unavailable Unavailable Fons, M Deena ONCOLOGY REGISTRAR Unavailable Unavailable Fons, M Deena ONCOLOGY REGISTRAR Unavailable Unavailable Fons, M Deena ONCOLOGY REGISTRAR Unavailable Unavailable Fons, M Deena ONCOLOGY REGISTRAR Unavailable Unavailable Fons, M Deena ONCOLOGY REGISTRAR Unavailable Unavailable Fons, M Deena ONCOLOGY REGISTRAR Unavailable Unavailable Alex Herndon MD Unavailable Unavailable Alex Herndon MD Unavailable Unavailable Alex Herndon MD Unavailable Unavailable Alex Herndon MD Unavailable Unavailable Alex Herndon MD Unavailable Unavailable Alex Herndon MD Unavailable Unavailable Alex Herndon MD Unavailable Unavailable Alex Herndon MD Unavailable Unavailable Alex Herndon MD Unavailable Unavailable Alex Herndon MD Unavailable Unavailable Alex Herndon MD Unavailable Unavailable Alex Herndon MD Unavailable Unavailable Alex Herndon MD Unavailable Unavailable Alex Herndon MD Unavailable Unavailable Alex Herndon MD Unavailable Unavailable Alex Herndon MD Unavailable Unavailable Alex Herndon MD Unavailable Unavailable Alex Herndon MD Unavailable Unavailable Alex Herndon MD Unavailable Unavailable Alex Herndon MD Unavailable Unavailable Alex Herndon MD Unavailable Unavailable Alex Herndon MD Unavailable Unavailable Alex Herndon MD Unavailable Unavailable Alex Herndon MD Unavailable Unavailable Alex Herndon MD Unavailable Unavailable Alex Herndon MD Unavailable Unavailable Slezka Vokennedytech Unavailable Unavailable SlezkaUmerjtech MD Unavailable Unavailable Slezka Vojtech Unavailable Unavailable SlezkaUmerjtech Unavailable Unavailable Slezka Vojtech MD Unavailable Unavailable SlezkaUmerjtech MD Unavailable Unavailable Slezka Vojtech MD Unavailable Unavailable Slezka Vojtech Unavailable Unavailable Slezka Vojtech Unavailable Unavailable Slezka Vojtech Unavailable Unavailable Slezka Vojtech Unavailable Unavailable Slezka Vojtech Unavailable Unavailable Slezka Vojtech MD Unavailable Unavailable Slezka Vojtech MD Unavailable Unavailable Slezka Vojtech Unavailable Unavailable Slezka Vojtech Unavailable Unavailable Slezka Vojtech Unavailable Unavailable Slezka Vojtech Unavailable Unavailable Slezka Vojtech MD Unavailable Unavailable SlezkaUmerjtech Unavailable Unavailable Slezka Vojtech Unavailable Unavailable SleameliakaUmerjtech Unavailable Unavailable SleameliakaUmerjtech Unavailable Unavailable SlezkaUmerjtech Unavailable Unavailable Slezka Vojtech MD Unavailable Unavailable Slezka Vojtech Unavailable Unavailable Slezka Vojtech Unavailable Unavailable SleameliakaUmerjtech Unavailable Unavailable SleameliakaUmerjtech Unavailable Unavailable SleamleiakaUmerjtech Unavailable Unavailable SleameliakaUmerjtech MD Unavailable Unavailable SleameliakaUmerjtech Unavailable Unavailable REINDL, EL BACON Unavailable Unavailable REINDL, EL BACON Unavailable Unavailable REINDL, EL BACON Unavailable Unavailable REINDL, EL BACON Unavailable Unavailable REINDL, EL BACON Unavailable Unavailable REINDL, EL BACON Unavailable Unavailable REINDL, EL BACON Unavailable Unavailable REINDL, EL BACON Unavailable Unavailable REINDL, EL BACON Unavailable Unavailable REINDL, EL BACON Unavailable Unavailable REINDL, EL BACON Unavailable Unavailable REINDL, EL BACON Unavailable Unavailable REINDL, EL BACON Unavailable Unavailable REINDL, EL BACON Unavailable Unavailable REINDL, EL BACON Unavailable Unavailable REINDL, EL BACON Unavailable Unavailable REINDL, EL BACON Unavailable Unavailable REINDL, EL BACON Unavailable Unavailable REINDL, EL BACON Unavailable Unavailable REINDL, EL BACON Unavailable Unavailable REINDL, EL BACON Unavailable Unavailable REINDL, EL BACON Unavailable Unavailable REINDL, EL BACON Unavailable Unavailable REINDL, EL BACON Unavailable Unavailable REINDL, EL BACON Unavailable Unavailable REINDL, EL BACON Unavailable Unavailable REINDL, EL BACON Unavailable Unavailable REINDL, EL BACON Unavailable Unavailable REINDL, EL BACON Unavailable Unavailable REINDL, EL BACON Unavailable Unavailable REINDL, EL BACON Unavailable Unavailable REINDL, EL BACON Unavailable Unavailable REINDL, EL BACON Unavailable Unavailable REINDL, EL BACON Unavailable Unavailable REINDL, EL BACON Unavailable Unavailable REINDL, EL BACON Unavailable Unavailable REINDL, EL BACON Unavailable Unavailable REINDL, EL BACON Unavailable Unavailable REINDL, EL BACON Unavailable Unavailable REINDL, EL BACON Unavailable Unavailable REINDL, EL BACON Unavailable Unavailable REINDL, EL BACON Unavailable Unavailable REINDL, EL BACON Unavailable Unavailable REINDL, EL BACON Unavailable Unavailable Nakul, V KOFI PA-C Unavailable Unavailable [place], V KOFI PA-C Unavailable Unavailable Nakul, V KOFI PA-C Unavailable Unavailable Nakul, V KOFI PA-C Unavailable Unavailable [place], V KOFI PA-C Unavailable Unavailable [place], V KOFI PA-C Unavailable Unavailable [place], V KOFI PA-C Unavailable Unavailable Re-disclosure Warning The records that you are about to access may contain information from federally-assisted alcohol or drug abuse programs. If such information is present, then the following federally mandated warning applies: This information has been disclosed to you from records protected by federal confidentiality rules (42 CFR part 2). The federal rules prohibit you from making any further disclosure of this information unless further disclosure is expressly permitted by the written consent of the person to whom it pertains or as otherwise permitted by 42 CFR part 2. A general authorization for the release of medical or other information is NOT sufficient for this purpose. The Federal rules restrict any use of the information to criminally investigate or prosecute any alcohol or drug abuse patient.The records that you are about to access may contain highly sensitive health information, the redisclosure of which is protected by Article 27-F of the [facility] Public Health law. If you continue you may have access to information: Regarding HIV / AIDS; Provided by facilities licensed or operated by the [facility] Office of Mental Health; or Provided by the [facility] Office for People With Developmental Disabilities. If such information is present, then the following [facility] mandated warning applies: This information has been disclosed to you from confidential records which are protected by state law. State law prohibits you from making any further disclosure of this information without the specific written consent of the person to whom it pertains, or as otherwise permitted by law. Any unauthorized further disclosure in violation of state law may result in a fine or long term sentence or both. A general authorization for the release of medical or other information is NOT sufficient authorization for further disc losure. Allergies and Adverse Reactions Type Description Substance Reaction Status Data Source(s ) Drug allergy Ibuprofen Ibuprofen Anaphylaxis Active eCW1 (Critical [facility] hospital) Drug allergy Gemfibrozil Gemfibrozil Nausea/Vomiting Active eCW1 ([facility]) shellfish shellfish shellfish Anaphylaxis Active eCW1 ([facility]) Bone Putty Bone Putty Bone Putty inflammatory Active eCW1 ([facility]) Ceftin Ceftin Cefuroxime 250 MG Oral Tablet [Ceftin] Nausea/V omiting Active eCW1 ([facility]) shellfish shellfish shellfish Anaphylaxis Active eCW1 ([facility]) Bone Putty Bone Putty Bone Putty inflammatory Active eCW1 ([facility]) Ceftin Ceftin Cefuroxime 25 MG/ML Oral Suspension [Ceft in] Nausea/Vomiting Active eCW1 ([facility]) Family History Family Member Name Family Member Gender Family Member Status Date o f Status Description Data Source(s) Unknown Male Problem MEDENT ([facility], ) Unknown Female Problem MEDENT ([facility] Encounters Encounter Providers Location Date Indications Data Source(s ) Outpatient Attender: KOFI MENARD.SILVIO-DERIAN.SILVIO 10/2021 12:00:00 AM EST - 12/06/2020 10:25:36 AM EST [facility] Unknown [address] [place] [address] 12/06/2020 12:00:00 AM EST eCW1 ([facility]) Outpatient Attender: EL Lopez/Yumiko/Ashok/Vanita jolley 11/30/2020 09:00:00 AM EST MEDENT ([facility] actice, ) [place] [address] [address] 10/03/2020 12:00:00 AM EST eCW1 ([facility]) [place]patient [address] [address] 09/13/2020 12:00:00 AM EDT eCW1 ([facility]) [place] [address] [address] 08/25/2020 12:00:00 AM EDT eCW1 ([facility]) Outpatient Attender: Alex MENARD.SILVIO-SJP.SILVIO 07/2020 12:00:00 AM EDT - 06/02/2020 11:44:04 AM EDT [facility] Unknown [address] [place] [address] 04/26/2020 12:00:00 AM EDT eCW1 ([facility]) Outpatient Attender: Deena COLLIERSILVIO-SJP.SILVIO 0 12:00:00 AM EDT - 04/21/2020 04:01:47 PM EDT [facility] [address] [place] [address] 04/12/2020 12:00:00 AM EDT eCW1 ([facility]) [facility] [address] [place] [address] 04/12/2020 12:00:00 AM EDT eCW1 ([facility]) [facility] [address] [address] 12/07/2019 12:00:00 AM EST eCW1 ([facility]) Immunizations Vaccine Date Status Description Data Source(s) IIV3. This is one of two codes replacing CVX 15, which is being retired. 08/30/2020 09:23:00 AM EDT completed eCW1 (Critical access hospital) IIV3. This is one of two codes replacing CVX 15, which is being retired. 08/30/2020 09:23:00 AM EDT completed eCW1 (Critical access hospital) IIV3. This is one of two codes replacing CVX 15, which is being retired. 08/30/2020 09:23:00 AM EDT completed eCW1 (Critical access hospital) Medications Medication Brand Name Start Date Product Form Dose Route Admi nistrative Instructions Pharmacy Instructions Status Indications Reaction Description Data Source(s) gabapentin 400 MG Oral Capsule gabapentin (NEURONTIN) 400 MG capsule gabapentin (NEURONTIN) 400 MG capsule 09/27/2020 12:00:00 AM EST 1 {capsule} Oral active Take 1 capsule by mouth 6 (six) times a day [facility] Metformin hydrochloride 500 MG Oral Tablet metFORMIN ( GLUCOPHAGE) 500 MG tablet metFORMIN (GLUCOPHAGE) 500 MG tablet 05/26/2020 12:00:00 AM EDT 1 { tbl} Oral active Take 1 tablet by mouth quinton villegas [facility] pantoprazole 40 MG Delayed Release Oral Tablet Pantopr azole Sodium 40 MG Pantoprazole Sodium 40 MG 05/11/2020 12:00:00 AM EDT 1.0 {tablet} active Pantoprazole Sodium 40 MG eCW1 ( [facility]) pantoprazole 40 MG Delayed Release Oral Tablet Pantopr azole Sodium 40 MG Pantoprazole Sodium 40 MG 05/11/2020 12:00:00 AM EDT 1.0 {tablet} active Pantoprazole Sodium 40 MG eCW1 ( [facility]) pantoprazole 40 MG Delayed Release Oral Tablet Pantopr azole Sodium 40 MG Pantoprazole Sodium 40 MG 05/11/2020 12:00:00 AM EDT 1.0 {tablet} active Pantoprazole Sodium 40 MG eCW1 ( [facility]) pantoprazole 40 MG Delayed Release Oral Tablet Pantopr azole Sodium 40 MG Pantoprazole Sodium 40 MG 05/11/2020 12:00:00 AM EDT 1.0 {tablet} active Pantoprazole Sodium 40 MG eCW1 ( [facility]) 24 HR metoprolol succinate 50 MG Extende d Release Oral Tablet metoprolol succinate (TOPROL-XL) 50 MG 24 hr tablet metoprolol succinate (TOPROL-XL) 50 MG 24 hr tablet 03/24/2020 12:00:00 AM EDT 1 {tbl} Oral acti ve Take 1 tablet by mouth daily [facility] gabapentin 800 MG Oral Tablet gabapentin (NEURONTIN) 8 00 MG tablet gabapentin (NEURONTIN) 800 MG tablet 800 mg Oral aborted Take 800 mg by mouth 3 (three) times a day [facility] Insurance Providers Payer name Policy type / Coverage type Policy ID Covered democrat ID Covered democrat's relationship to goldsmith Policy G[place]mith Plan Information MEDICARE COMPLETE [id number] SP [id number] MEDICARE COMPLETE [id number] SP [id number] MEDICARE COMPLETE [id number] SP [id number] MEDICARE COMPLETE-[facility] O [id number] S [id number] [facility] MEDICARE [id number] [facility] MEDICARE [id number] Shelbie [id number] [facility] MEDICARE [id number] Shelbie [id number] [facility] [id number] SP [id number] MEDICARE BLUE PPO 306 [id number] SP [id number] [facility] B [id number] S [id number] MEDICARE BLUE PPO 306 [id number] SP [id number] ANS-Medicare Part B [id number] ANSI-Medicare Part B [id number] ANSMedicare Part B [id number] ANSMedicare Part B [id number] ANSI-Medicare Part B [id number] [facility] [id number] ANSI-Medicare Part B [id number] ANSI-Medicare Part B [id number] ANSI-Medicare Part B [id number] ANSI-Medicare Part B [id number] Medicare Blue Ppo Commercial [id number] Self [id number] MEDICARE BLUE PPO 306 [id number] SP [id number] BS [place] Commercial [id number] Self [id number] ANSI-Medicare Part B [id number] Medicare Blue Ppo Commercial [id number] Self [id number] ANSI-Medicare Part B [id number] ANSI-Medicare Part B [id number] ANSI-Medicare Part B [id number] BS [place] Commercial [id number] Self [id number] ANSI-Medicare Part B [id number] ANSI-Medicare Part B [id number] ANSI-Medicare Part B [id number] [employer] [employer] MEDICARE [id number] Shelbie [id number] EXCELL[employer] BCBS MEDICARE Medicare MC MC EXCELLUS BCBS [id number] Shelbie [id number] MEDICARE [id number] Shelbie [id number] A Medicare Dme Medigap Part B [id number] Self [id number] BS [place] Medigap Part B [id number] Self [id number] Medicare Medicare Primary [id number] Self [id number] MEDICARE [id number] SP [id number] A [place] 302/307 [id number] SP [id number] MEDICARE [id number] SP [id number] A [place] 306/806 [id number] SP [id number] MEDICARE [id number] SP [id number] A Medicare Dme Medigap Part B [id number] Self [id number] BS [place] Medigap Part B [id number] Self [id number] Medicare Medicare Primary [id number] Self [id number] [place] 306/806 [id number] SP [id number] MEDICARE [id number] SP [id number] A Medicare Medigap Part B Self BS [place] Medigap Part B [id number] Self [id number] Medicare Dme Medicare Primary Self [place] 302/307 [id number] SP [id number] [place] Medigap Part B Self [place] Self MEDICARE PART A -O/P [id number] Problems, Conditions, and Diagnoses Code Display Name Description Problem Type Effective Dates Data Source(s) R42 Dizziness Dizziness [id number] 12/06/2020 12:00:00 AM ES T [facility] I45.9 [id number] Skipped heart beats Problem 05/11/2020 12:00 :00 AM EDT eCW1 ([facility]) G45.3 Amaurosis fugax Amaurosis fugax [id number] 04/21/2020 12:0 0:00 AM EDT [facility] 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, unspecified vessel or lesion type, unspecified whether [place] or transplanted heart Problem 12/07/2019 12:00:00 AM EST eCW1 (Critical access hospital) 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, unspecified vessel or lesion type, unspecified whether [place] or transplanted heart Problem 12/07/2019 12:00:00 AM EST eCW1 (Critical [facility] hospital) G45.3 Amaurosis fugax Amaurosis fugax Diagnosis 06/02/2020 11:1 3:07 AM EDT [facility] 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 Occlusion and stenosis of bilateral bush Diagnosis 06/02/2020 11:13:07 AM EDT [facility] 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 Atherosclerotic heart disease of [place] Diagnosis 06/02/2020 11:13:07 AM EDT [facility] I10 Essential (primary) hypertension Essential (primary) h ypertension Diagnosis 06/02/2020 11:13:07 AM EDT [facility] E78.5 Hyperlipidemia, unspecified Hyperlipidemia, unspecifie d Diagnosis 06/02/2020 11:13:07 AM EDT [facility] E11.9 Type 2 diabetes mellitus without complic ations Type 2 diabetes mellitus without complic Diagnosis 06/02/2020 11:13:07 AM EDT [facility] Surgeries/Procedures Procedure Description Date Indications Data Source(s) Office Visit, Est Pt., Level 2 FC 12/07/2019 12:00:00 AM EST eCW1 ([facility]) Office Visit, Est Pt., Level 4 PC 12/07/2019 12:00:00 AM EST eCW1 ([facility]) Results ID Date Data Source [id number] 01/12/2021 11:00:00 AM EST [facility] Name Value Range Interpretation Code Description Data Amira rce(s) Supporting Document(s) SARS coronavirus 2 RNA Not Detected [facility] [place] This lab was ordered by [facility] and reported by [facility]. ID Date Data Source [id number] 12/07/2019 12:00:00 AM EST eCW1 (Critical access hospital) Name Value Range Interpretation Code Description Data Amira rce(s) Supporting Document(s) Hemoglobin A1c/Hemoglobin.total in Blood 6.0 HEMOGLOBIN A1c eCW1 ([facility]) HEMOGLOBIN A1c ID Date Data Source Comprehensive Metabolic Profile (CMP) 12/07/2019 12:00:00 AM EST eCW1 ([facility]) Name Value Range Interpretation Code Description Data Amira rce(s) Supporting Document(s) 99 70-100 GLUCOSE, FASTING eCW1 (Critical access hospital) 0.85 0.55-1.30 CREATININE FOR GFR eCW1 ([facility]) > 60.0 >39 GLOMERULAR FILTRATION RATE eCW 1 ([facility]) 16 7-18 BLOOD UREA NITROGEN eCW1 (Critical access hospital) 139 136-145 SODIUM LEVEL eCW1 ([facility]) 101 98-107 CHLORIDE LEVEL eCW1 ([facility]) 30 21-32 CARBON DIOXIDE LEVEL eCW1 ([facility]) 4.5 3.5-5.1 POTASSIUM SERUM eCW1 ([facility]) 12 7-37 AST/SGOT eCW1 ([facility]) 21 12-78 ALT/SGPT eCW1 ([facility]) 9.5 8.8-10.2 CALCIUM LEVEL eCW1 ([facility]) 79 45-117 ALKALINE PHOSPHATASE eCW1 ([facility]) 0.5 0.2-1.0 BILIRUBIN,TOTAL eCW1 ([facility]) 7.9 6.4-8.2 TOTAL PROTEIN eCW1 ([facility]) 4.3 3.2-5.2 ALBUMIN eCW1 ([facility]) 1.19 1.00-1.93 ALBUMIN/GLOBULIN RATIO eCW1 ([facility]) Procedure Social History Code Duration Value Status Description Data Source(s ) Alcohol intake 12/06/2020 12:00:00 AM EST No completed [facility] Smoking 12/06/2020 12:00:00 AM EST Never smoker completed Never s wyker [facility] Smoking 09/13/2020 12:00:00 AM EDT Never Smoker completed Never S moker eCW1 ([facility]) Smoking 09/13/2020 12:00:00 AM EDT Never Smoker completed Never S moker eCW1 ([facility]) Smoking 09/13/2020 12:00:00 AM EDT Never Smoker completed Never S moker eCW1 ([facility]) Smoking 06/13/2020 12:00:00 AM EDT Never Smoker completed Never S moker eCW1 ([facility]) Smoking 04/12/2020 12:00:00 AM EDT Never Smoker completed Never S moker eCW1 ([facility]) Vital Signs ID Date Data Source UNK Name Value Range Interpretation Code Description Data Source(s) Body mass index (BMI) [Ratio] 27.98 kg/m2 27.98 kg/m2 [facility] Body weight 73.936 kg 73.936 kg [facility] Body height 162.6 cm 162.6 cm [facility] Heart rate 63 /min 63 /min [facility] Diastolic blood pressure 60 mm[Hg] 60 mm[Hg] [facility] Systolic blood pressure 118 mm[Hg] 118 mm[Hg] [facility] Oxygen saturation in Arterial blood by Pulse oximetry 97 % 97 % [facility] Body surface area Derived from formula 1.80 m2 1.80 m2 [facility] ([facility], ) Body weight 74.390 kg 74.390 kg [facility] ([facility]) [place] body weight 120 [lb_av] 120 [lb_av] MEDEN T ([facility]) Body mass index (BMI) [Ratio] 28.1 kg/m2 28.1 k g/m2 [facility] ([facility]) Body weight 164.00 [lb_av] 164.00 [lb_av] MEDEN T ([facility], ) Body height 64 [in_i] 64 [in_i] [facility] ([facility]) 5'4" Diastolic blood pressure 69 mm[Hg] 69 mm[Hg] [facility] ([facility]) Systolic blood pressure 131 mm[Hg] 131 mm[Hg] M EDENT ([facility]) Diastolic blood pressure 85 mm[Hg] 85 mm[Hg] eCW1 ([facility]) Systolic blood pressure 125 mm[Hg] 125 mm[Hg] e CW1 ([facility]) Body temperature 96.6 [degF] 96.6 [degF] eCW1 ( [facility]) Respiratory rate 17 /min 17 /min eCW1 ([facility] hospital) Heart rate 74 /min 74 /min eCW1 ([facility]) Body mass index (BMI) [Ratio] 28.94 kg/m2 28.94 kg/m2 W1 ([facility]) Body height 63 [in_i] 63 [in_i] eCW1 ([facility] hospital) Body weight 163.4 [lb_av] 163.4 [lb_av] eCW1 ([facility]) Diastolic blood pressure 81 mm[Hg] 81 mm[Hg] eCW1 ([facility]) Systolic blood pressure 119 mm[Hg] 119 mm[Hg] e CW1 ([facility]) Body temperature 97.6 [degF] 97.6 [degF] eCW1 ( [facility]) Respiratory rate 16 /min 16 /min eCW1 (Critical access hospital) Heart rate 74 /min 74 /min eCW1 ([facility]) Body mass index (BMI) [Ratio] 29.93 kg/m2 29.93 kg/m2 eCW1 ([facility]) Body height 63 [in_us] 63 [in_us] eCW1 ([facility] hospital) Body weight Measured 169 [lb_av] 169 [lb_av] eC W1 ([facility]) Diastolic blood pressure 67 mm[Hg] 67 mm[Hg] eCW1 ([facility]) Systolic blood pressure 130 mm[Hg] 130 mm[Hg] e CW1 ([facility]) Body temperature 98.0 [degF] 98.0 [degF] eCW1 ( [facility]) Respiratory rate 18 /min 18 /min eCW1 (Critical access hospital) Heart rate 83 /min 83 /min eCW1 ([facility]) Body mass index (BMI) [Ratio] 29.01 kg/m2 29.01 kg/m2 eCW1 ([facility]) Body height 63 [in_us] 63 [in_us] eCW1 (Critical [facility] hospital) Body weight Measured 163.8 [lb_av] 163.8 [lb_av ] eCW1 ([facility]) Patient Treatment Plan of Care Planned Activity Planned Date Details Description Data Source (s) gabapentin 400 MG Oral Capsule 09/27/2020 12:00:00 AM EST [facility] Metformin hydrochloride 500 MG Oral Tablet 05/26/2020 12:00:00 AM E DT [facility] pantoprazole 40 MG Delayed Release Oral Tablet 05/11/2020 12:00:00 AM EDT eCW1 ([facility]) pantoprazole 40 MG Delayed Release Oral Tablet 05/11/2020 12:00:00 AM EDT eCW1 ([facility]) pantoprazole 40 MG Delayed Release Oral Tablet 05/11/2020 12:00:00 AM EDT eCW1 ([facility]ly [facility]) 24 HR metoprolol succinate 50 MG Extended Release Oral Tablet 03/24/2020 12:00:[address] [facility] gabapentin 800 MG Oral Tablet [facility]
--- OUTSIDE RECORDS SUMMARY | 2021-01-17 06:46 | CCD ---
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 Active 943553583 Problem Essential (primary) hypertension I10 Active 16862914 Problem Acute left-sided low back pain with left-sided sciatica M54.42 Active 85798204 Problem Mixed hyperlipidemia E78.2 Active 249110680 Problem Hyperlipidemia, unspecified hyperlipidemia type E7 8.5 Active 71775162 Problem 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 Active 094561529133737 Problem History of [place] (myocardial infarction) I25.2 Ac tive 942444746 Problem GERD without esophagitis K21.9 Active 2359168 05 Problem Anxiety F41.9 Active 55194986 Problem Alternating constipation and diarrhea R19.8 Ac tive 263078381 Problem Colon polyps K63.5 Active 26030368 Problem Type 2 diabetes mellitus wit h complication, without long-term current use of insulin E11.8 Active 71660543 Problem Stented coronary artery Z95.5 Active 97430749 5 Problem Diabetes mellitus due to und erlying condition with diabetic neuropathy, unspecified E08.40 Active 028018582 Problem Type 2 diabetes mellitus wit hout complication, without long-term current use of insulin E11.9 Active 951386692 Problem 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 I25.118 Active 9876378163178 Problem Essential hypertension I10 Active 88601609 Problem Recurrent major depressive disorder, in partial remission F33.41 Active 09058973 Problem Coronary artery disease with unstable angina pectoris, unspecified vessel or lesion type, unspecified whether hoopa or transplanted heart I25.110 Active Problem Iliotibial band syndrome of left side M76.32 Ac tive 672866369 Problem Skipped heart beats I45.9 Active 808766046 Problem LLQ abdominal pain R10.32 Active 118268305 Problem Nausea & vomiting R11.2 Active 06448273 Problem Piriformis syndrome of left side G57.02 Active 002511239133531 Problem Influenza vaccination declined Z28.21 Active 3 82742212 Problem Chronic GERD K21.9 Active 161746456 Problem Symptoms consistent with irritable bowel syndrome K58.9 Active 52837413 ALLERGIES Allergen (clinical drug ingredient) Drug/Non Drug Allergy do cumented on EMR Reaction Allergy Type Onset Date Status gemfibrozil Gemfibrozil(ND Code:[address]-18) Nausea/Vomiting Drug Allergy Active cefuroxime Ceftin Nausea/Vomiting Drug Allergy Active lisinopril Lisinopril(NDC Code:[address]-13) dizziness Drug Allergy Active ibuprofen Ibuprofen(NDC Code:[address]-01) Anaphylaxis Drug Allergy Active Bone Putty inflammatory Non Drug Allergy Active Shellfish shellfish Anaphylaxis Non Drug Allergy Active Sulfa (for allergy use only) Hives Drug Allergy Active ENCOUNTERS from 1945 to 2020-12-08 Encounter Location Date Provider Diagnosis [facility] [address] [place] [address] Nov, Renny Garibay IMMUNIZATIONS Vaccine Route Administration Date Status Influenza (Pharmacy Given) Unknown Aug 30, 2020 Admin istered Influenza (Pharmacy Given) Unknown Aug 11, 2018 Admin istered Influenza (Pharmacy Given) Unknown Aug 18, 2018 Admin istered Influenza (Pharmacy Given) Unknown Aug 25, 2019 Admin istered Influenza (6mo & up) Fluzone Unknown Oct 30, 2014 Ref used Zoster 50mcg/0.5mL (Shingrix) Unknown Jul 24, 2019 Ad ministered Zoster 50mcg/0.5mL (Shingrix) Unknown April 24, 2019 Ad ministered Zoster 0.65mL (Zostavax) Unknown Dec 12, 2017 Adminis tered Pneumococcal Adult 0.5mL (Pneumovax 23) Unknown Aug 12, 2015 Administered TDAP 0.5mL (Boostrix) IM Intramuscular Sep 11, 2016 Administe red Pneumococcal 0.5mL (Prevnar 13) IM Intramuscular March 07, 2016 Administered Influenza (6mo & up) Fluzone Unknown Sep 23, 2017 Adm inistered Influenza (6mo & up) Fluzone Unknown Aug 12, 2015 Adm inistered SOCIAL HISTORY Tobacco Use: Social History Observation Description Date Details (start date - stop date) Never Smoker Sex Assigned At : Social History Observation Description Sex Assigned At Unknown Education: Question Answer Notes Level of Education: College Audit Question Answer Notes Total Score: 0 Interpretation: Alcohol Education Language: Question Answer Notes Languages spoken: Albanian Anabaptist: Question Answer Notes Anabaptist 13 Hindu Sexual Hx: Question Answer Notes Had sex in the last 12 months (vaginal, oral, or anal)? No Have you ever had an STD? No Drug and Alcohol Question Answer Notes Total Score: 0 Interpretation: No problems reported Alcohol Screening: Question Answer Notes Did you have a drink containing alcohol in the past year? No Points 0 Interpretation Negative BMI Care Goal Follow-Up Question Answer Notes Above Normal BMI Follow-Up Dietary management educatio n, guidance, and counseling Tobacco Use: Question Answer Notes Are you a: never smoker REASON FOR REFERRAL No Information VITAL SIGNS No information MEDICATIONS Medication SIG (Take, Route, Frequency, Duration) Notes Start Da te End Date Status Metoprolol Succinate ER 50 MG 1 tablet Orally Once a day for 90 days Oct, Active Flonase 50 MCG/DOSE 1 spray in each nostril Nasally As needed Oct, Active Dicyclomine HCl 20 MG 1 tablet Orally Three times a day for 90 d ays Jun, Active Albuterol Sulfate HFA 108 (90 Base) MCG/ACT 1-2 puffs as needed Inhalation every 4-6 hrs for 30 day(s) Jan, Active Aspirin 325 MG 1 tablet Orally Once a day for 90 days Active Hydrochlorothiazide 25 MG 1 tablet Orally Once a day for 90 days Active Plavix 75 mg 1 tablet Orally Once a day for 90 days Active Praluent 75 MG/ML 1 ml Subcutaneous Once every two weeks Active Metformin HCl 500 MG 1 tablet with meal Orally Daily for 90 days Active Pantoprazole Sodium 20 MG 1 tablet Orally bid for 90 day(s) Not-Taking Celexa 20MG 1 tablet Orally Once a day for 90 days Active Gabapentin 400 MG 2 capsule Orally Three times a day for 90 days Active Nitrostat 0.4 MG 1 tablet under the tongue an d allow to dissolve as needed Sublingual as directed for 90 days Active Pantoprazole Sodium 40 MG 1 tablet Orally bid for 90 days Apr, Active PROCEDURES No Information RESULTS No Results REASON FOR VISIT 08/2020 labs MEDICAL (GENERAL) HISTORY Type Description Date Medical History HTN Medical History DM2 Medical History DM neuropathy Medical History MIx 3 Medical History hyperlipidemia Medical History left foot fracture s/p repair Medical History Mixed hyperlipidemia due to type 2 diabe mitchel mellitus Medical History Mixed hyperlipidemia Medical History Statin myopathy Medical History Drug-induced myopathy Medical History Anxiety Medical History GERD without esophagitis Medical History Alternating constipation and diarrhea Medical History Colon polyps Medical History Coronary artery disease invo lving hoopa coronary artery of hoopa heart without angina pectoris Medical History Stented coronary artery Surgical History Eyelid Surgery by Dr. Aldrich 03/21/15 Surgical History 2 stents 09/21/16 Surgical History Left foot surgery Dr. Hodge removed the implants that were placed in the [facility] 2015 Surgical History section x 1 1979 Surgical History Appendix was removed, was "wrapped aroun d my ovary and tube" 1974 Surgical History gallbladder removed 12/26/[address] [facility] foot surgery 12-21-[address] [facility] chest pain Hospitalization History [facility] 2 stents, an gioplasty 01-08-2013 Hospitalization History [facility] 09/21/16 Hospitalization History [facility] foot surgery, left. 2016 Goals Section No Information Health Concerns No Information MEDICAL EQUIPMENT No Information MENTAL STATUS No Information FUNCTIONAL STATUS No Information ASSESSMENTS No Information PLAN OF TREATMENT Medication Medication Name Sig Start Date Stop Date Aspirin 325 MG 1 tablet Orally Once a day for 90 days Gabapentin 400 MG 2 capsule Orally Three times a day for 90 days Praluent 75 MG/ML 1 ml Subcutaneous Once every two weeks Dicyclomine HCl 20 MG 1 tablet Orally Three times a day for 90 days Jun, Pantoprazole Sodium 40 MG 1 tablet Orally bid for 90 days Apr Metformin HCl 500 MG 1 tablet with meal Orally Daily for 90 days Plavix 75 mg 1 tablet Orally Once a day for 90 days Metoprolol Succinate ER 50 MG 1 tablet Orally Once a day for 90 days Oct, Celexa 20MG 1 tablet Orally Once a day for 90 days Hydrochlorothiazide 25 MG 1 tablet Orally Once a day for 90 days Next Appt Details Provider Name:Renny Garibay, 2020-12-26 09:00:00 AM, [address] [place], [address], Insurance Providers Payer Name Payer Address Payer Phone Insured Name Patient Relati onship to Insured Coverage Start Date Coverage End Date MEDICARE COMPLETE [facility] [address] [address] [facility] [id number] YOSELYN JACOBSON self
--- OUTSIDE RECORDS SUMMARY | 2021-01-17 06:46 | CCD | Continuity of Care Document ---
Author Author Mckenna ZHOU MD Organization Unknown Address [address] [place] [id number] Phone [phone] Care Team Providers Care Chemical Operations And Training Name Role Phone GaribayRenny [facility]. [facility] [phone] Problems Description No Active Problems Social History Type Date Description Comments Sex Unknown ETOH Use Denies alcohol use Tobacco Use Start: Unknown Denies Smoking Recreational Drug Use Denies Drug Use Allergies, Adverse Reactions, Alerts Active Allergies Reaction Severity Comments Date Shellfish-derived Products 0 07/06/2016 Penicillin 07/06/2016 Ibuprofen CHOKING 07/06/2016 Sulfa Hives 12/04/2018 Statins MUSCLE CRAMPS 12/04/2018 Iodine Hives 01/08/2019 Inactive Allergies NKDA 07/06/2016 Medications Active Medications SIG Qnty Indications Ordering Provide r Date Albuterol Sulfate Powder 2 puffs every 4hr as needed mdi Unknown Nitrostat 0.4mg Tablets Sub p rn Unknown Citalopram Hydrobromide 20mg Table ts daily Unknown Gabapentin 400mg Capsules 2 capsules tid Unknown Hydrochlorothiazide 25mg Tablets daily Unknown Metoprolol Tartrate 50mg Tablets daily Unknown Metformin HCL 500mg Tablets 1 tab qd Unknown Plavix 75mg Tablets daily Unknown Voltaren 1% Gel prn Unknown Multivitamin Adult Tablets 1 by mouth every day Unknown Aspirin Ec 325mg Tablets DR 1 by mouth every day Unknown Vitamin D3 400Unit Capsules 1 by mouth every day Unknown Pantoprazole Sodium 20mg Tablets D R Take 1 Tablet By Mouth bid Unknown Dicyclomine HCL 20mg Tablets take 1 tablet by mouth 3 times a day as (1/2 hour before meal) for abdominal pain/diarrhea/spasm Unknown [facility] Mukherjee Wort 300mg Capsules Unknown Immunizations Description No Information Available Vital Signs Date Vital Result Comment 11/30/2020 9:58am BP Systolic 131 mmHg BP Diastolic 69 mmHg Height 64 inches 5'4" Weight 164.00 lb BMI (Body Mass Index) 28.1 kg/m2 [place] [facility] Weight 120 lb Weight 74.390 kg BSA (Body Surface Area) 1.80 m2 07/09/2019 2:23pm BP Systolic 122 mmHg BP Diastolic 72 mmHg Height 64 inches 5'4" Weight 167.50 lb BMI (Body Mass Index) 28.7 kg/m2 [place] [facility] Weight 120 lb Weight 75.978 kg BSA (Body Surface Area) 1.81 m2 Results Description No Information Available Procedures Description No Information Available Medical Devices Description No Information Available Encounters Type Date Location Provider Dx Diagnosis Office Visit 11/30/2020 10:00a [facility] Kishan jolley MD R10.13 Epigastric pain R10.33 Periumbilical pain R12 Heartburn Assessments Date Code Description Provider 11/30/2020 R10.13 Epigastric pain Kishan Zhou MD 11/30/2020 R10.33 Periumbilical pain Kishan Zhou MD 11/30/2020 R12 Heartburn Kishan Zhou MD Plan of Treatment 11/30/2020 - Kishan Zhou MD* R10.13 Epigastric pain * R10.33 Periumbilical pain * R12 Heartburn * * New Xrays:* Gastric Emptying Study, Ordered: 11/30/20 * New Orders:* Endoscopy, Ordered: 11/30/20 * Comments:* Abdominal pain after eating at times. has no diarrhea, no weight loss, no fever.On EGD has enlarged stomach on my last scope. Functional Status Description No Information Available Mental Status Description No Information Available Referrals Refer to Reason for Referral Status Appt Date Kishan Zhou MD epigastric pain Scheduled 11/30/2020 [facility], Gastroenterology [address], [address] [place] [address] [phone]
[2021-01-17] MEDS ORDERED: propofoL 500 MG/50 ML VIAL As Ordered ONE (08:40)
[2021-01-17] MEDS ORDERED: fentaNYL 100 MCG/2 ML INJECTION (J3010) As Ordered ONE (08:40)
[2021-01-17] MEDS ORDERED: LIDOCAINE 2% 100MG/5ML SDV (FOR ANES.) As Ordered ONE (08:40)
--- NOTE | 2021-01-17 08:50 | ROOR ---
Patient Name: Mckenna Evangelista Procedure Date: 01/17/2021 7:25 AM Date of : 1945 Age: 75 Room: [facility] Gender: Female Note Status: Finalized Procedure: Upper GI endoscopy Indications: Epigastric abdominal pain, Gastroparesis Providers: Kishan ZHOU MD Referring MD: Renny Garibay DO Requesting Provider: Medicines: Monitored Anesthesia Care Complications: No immediate complications. Procedure: Pre-Anesthesia Assessment: - The heart rate, respiratory rate, oxygen saturations, blood pressure, adequacy of pulmonary ventilation, and response to care were monitored throughout the procedure. The Endoscope was introduced through the mouth, and advanced to the second part of duodenum. The upper GI endoscopy was accomplished without difficulty. The patient tolerated the procedure well. Findings: A small hiatal hernia was present. A medium diverticulum was found in the second portion of the duodenum. The examined esophagus was normal. The exam of the stomach was otherwise normal. The exam of the duodenum was otherwise normal. Impression: - Small hiatal hernia. - Duodenal diverticulum (incidental). - EGD is otherwise normal to second portion of duodenum - No specimens collected. Recommendation: - Gastroparesis diet: - Eat smaller, more frequent meals throughout the day. - Low fat diet. - Liquid/soft foods are tolerated better than solid foods. - Low fiber/well cooked vegetables are tolerated better than high fiber/fibrous foods/raw vegetables. - Avoid medications that inhibit gastric/intestinal motility such as narcotic medications. - Resume Plavix (clopidogrel) at prior dose today. Procedure Code(s): --- Professional --- 20769, Esophagogastroduodenoscopy, flexible, transoral; diagnostic, including collection of specimen(s) by brushing or washing, when performed (separate procedure) Diagnosis Code(s): --- Professional --- K57.10, Diverticulosis of small intestine without perforation or abscess without bleeding K31.84, Gastroparesis R10.13, Epigastric pain K44.9, Diaphragmatic hernia without obstruction or gangrene CPT copyright 2019 [employer]. All rights reserved. The codes documented in this report are preliminary and upon action installer review may be revised to meet current compliance requirements. Kishan Zhou MD Kishan ZHOU MD 01/17/2021 8:51:12 AM Electronically signed by Kishan ZHOU MD Number of Addenda: 0 Note Initiated On: 01/17/2021 7:25 AM Estimated Blood Loss: Estimated blood loss: none.
[2021-01-17 09:10] VITALS: BP 137/75
== END 2021-01-17 09:15 | disposition home or self-care (01) ==
LOC: M OPP 06:41
PROVIDERS: ATTEND Internal Medicine Gastroenterology
DX: R10.13 Epigastric pain (principal); K31.84 Gastroparesis; K57.10 Diverticulosis of small intestine without perforation or abscess without bleeding; K44.9 Diaphragmatic hernia without obstruction or gangrene; I25.10 Atherosclerotic heart disease of native coronary artery without angina pectoris; I25.2 Old myocardial infarction; I10 Essential (primary) hypertension; E11.9 Type 2 diabetes mellitus without complications; E78.5 Hyperlipidemia, unspecified; M19.90 Unspecified osteoarthritis, unspecified site; G62.9 Polyneuropathy, unspecified; Z95.5 Presence of coronary angioplasty implant and graft; Z88.2 Allergy status to sulfonamides; Z88.4 Allergy status to anesthetic agent; Z88.6 Allergy status to analgesic agent; Z79.01 Long term (current) use of anticoagulants; Z79.84 Long term (current) use of oral hypoglycemic drugs; Z79.899 Other long term (current) drug therapy
CPT/HCPCS: 43235; J3010

== ENCOUNTER → 2021-03-04 | Outpatient (CLI) | payer MEDICARE ==
[~2021-03-04] MED LIST changes: -NS 1,000 ML IV ONE
[2021-03-04 11:19] LABS: BASO % 0.6 % (0.0-1.0); EOS # 0.2 10^3/uL (0.0-0.5); EOS % 2.7 % (0.0-3.0); HEMATOCRIT 34.3 % (36.0-47.0); LYMPH # 1.3 10^3/uL (1.5-5.0); LYMPH % 18.3 % (24.0-44.0); MEAN CORPUSCULAR HGB CONC 32.1 g/dl (32.0-36.5); MEAN CORPUSCULAR VOLUME 84.1 fl (80.0-96.0); MONO # 0.5 10^3/uL (0.0-0.8); MONO % 7.4 % (2.0-8.0); NEUTROPHILS # 5.1 10^3/uL (1.5-8.5); NEUTROPHILS % 70.7 % (36.0-66.0); PLATELET COUNT, AUTOMATED 367 10^3/uL (150-450); RED BLOOD COUNT 4.08 10^6/uL (4.00-5.40); WHITE BLOOD COUNT 7.1 10^3/uL (4.0-10.0)
[2021-03-04 11:41] LABS: ALBUMIN 3.8 GM/DL (3.2-5.2); ALT/SGPT 17 U/L (12-78); BILIRUBIN,TOTAL 0.4 MG/DL (0.2-1.0); BLOOD UREA NITROGEN 16 MG/DL (7-18); CALCIUM LEVEL 9.5 MG/DL (8.8-10.2); CARBON DIOXIDE LEVEL 31 MEQ/L (21-32); CHLORIDE LEVEL 98 MEQ/L (98-107); CHOLESTEROL LEVEL 334 MG/DL (<200); CHOLESTEROL RISK RATIO 5.964 (<5); CREATININE FOR GFR 0.87 MG/DL (0.55-1.30); GLOMERULAR FILTRATION RATE > 60.0 (>39); GLUCOSE, FASTING 99 MG/DL (70-100); HDL CHOLESTEROL 56 MG/DL (>40); LDL CHOLESTEROL 231 MG/DL (<100); NON-HDL-C 278 MG/DL; POTASSIUM SERUM 3.7 MEQ/L (3.5-5.1); SODIUM LEVEL 135 MEQ/L (136-145); TOTAL PROTEIN 7.2 GM/DL (6.4-8.2); TRIGLYCERIDES LEVEL 233 MG/DL (<150)
== END ==
LOC: M LAB 10:51
PROVIDERS: ATTEND Family Medicine
DX: E11.9 Type 2 diabetes mellitus without complications (principal); E78.5 Hyperlipidemia, unspecified

== ENCOUNTER → 2021-05-22 | Outpatient (CLI) | payer MEDICARE ==
[~2021-05-22] MED LIST changes: +GABA-283 PO; -GABA-845 PO
--- NOTE | 2021-05-22 09:42 | REPMRS ---
Patient History The patient states she has not had a clinical breast exam in over a year. No known family history of cancer. No Hormone Replacement Therapy Patient states no breast complaints today. Patient has signed MRS History Sheet. Digital Woman Screen Mammo: May 22, 2021 - Exam #: [id number] Bilateral CC and MLO view(s) were taken. Technologist: RT Tere Prior study comparison: June 30, 2019, bilateral digital woman screen mammo performed at [facility] and [facility]. May 16, 2017, bilateral digital mammo screening bilat, performed at [facility]. October 19, 2013, bilateral digital mammo screening bilat, performed at [facility]. FINDINGS: The breast tissue is heterogeneously dense. This may lower the sensitivity of mammography. The Volpara volumetric breast density category is: C. There is a moderate amount of heterogeneously dense fibroglandular tissue which is fairly symmetric. There is no interval development of dominant mass, architectural distortion, or grouped microcalcification typical of malignancy. There has been no change in the appearance of the mammogram from the prior studies. 3-D tomosynthesis shows no additional findings. Assessment: BI-RADS/ACR category 1 mammogram. Negative Mammogram. Recommendation Routine screening mammogram of both breasts in 1 year (for women over age 40). This patient's [facility] Lifetime Breast Cancer RIsk is estimated at 3.8 %. This mammogram was interpreted with the aid of an FDA-approved computer-aided dectection system. Electronically Signed By: Freddy Burnett MD 05/22/21 0942
== END ==
LOC: M WHC 08:24
PROVIDERS: ATTEND Family Medicine
DX: Z12.31 Encounter for screening mammogram for malignant neoplasm of breast (principal)

== ENCOUNTER → 2021-08-23 | Outpatient (CLI) | payer MEDICARE ==
[2021-08-23 12:26] LABS: CHOLESTEROL RISK RATIO 5.188 (<5)
== END ==
LOC: M WUC 08:58
PROVIDERS: ATTEND Physician Assistant
DX: E78.5 Hyperlipidemia, unspecified (principal)

== ENCOUNTER → 2022-03-14 | Outpatient (CLI) | payer OTHER ==
[~2022-03-14] MED LIST changes: -DICY20TA11 PO; +DICY20TA20 PO
[2022-03-14 14:30] LABS: BASO % 0.5 % (0.0-1.0); EOS # 0.1 10^3/uL (0.0-0.5); EOS % 1.8 % (0.0-3.0); HEMATOCRIT 36.6 % (36.0-47.0); HEMOGLOBIN 12.3 g/dl (12.0-15.5); LYMPH # 1.7 10^3/uL (1.5-5.0); LYMPH % 22.3 % (24.0-44.0); MEAN CORPUSCULAR HEMOGLOBIN 29.6 pg (27.0-33.0); MEAN CORPUSCULAR HGB CONC 33.6 g/dl (32.0-36.5); MEAN CORPUSCULAR VOLUME 88.2 fl (80.0-96.0); MONO # 0.5 10^3/uL (0.0-0.8); MONO % 6.8 % (2.0-8.0); NEUTROPHILS # 5.1 10^3/uL (1.5-8.5); NEUTROPHILS % 68.2 % (36.0-66.0); PLATELET COUNT, AUTOMATED 317 10^3/uL (150-450); RED BLOOD COUNT 4.15 10^6/uL (4.00-5.40); WHITE BLOOD COUNT 7.4 10^3/uL (4.0-10.0)
[2022-03-14 14:52] LABS: HEMOGLOBIN A1c 5.7 %
[2022-03-14 14:56] LABS: BLOOD UREA NITROGEN 14 MG/DL (7-18); CARBON DIOXIDE LEVEL 26 MEQ/L (21-32); CHLORIDE LEVEL 103 MEQ/L (98-107); CHOLESTEROL LEVEL 156 MG/DL (<200); CREATININE FOR GFR 0.83 MG/DL (0.55-1.30); GLOMERULAR FILTRATION RATE > 60.0 (>39); GLUCOSE, FASTING 136 MG/DL (70-100); HDL CHOLESTEROL 50 MG/DL (>40); LDL CHOLESTEROL 27 MG/DL (<100); NON-HDL-C 106 MG/DL; SODIUM LEVEL 136 MEQ/L (136-145); TRIGLYCERIDES LEVEL 393 MG/DL (<150)
[2022-03-14 15:04] LABS: CREATININE, URINE 48.9 MG/DL; MALB URINE SIEMENS < 5.0 MG/L; MAU/CREAT RATIO 10.2 MCG/MG (0.0-30.0)
== END ==
LOC: M EKG 12:44
PROVIDERS: ATTEND Family Medicine
DX: E11.9 Type 2 diabetes mellitus without complications (principal); R00.1 Bradycardia, unspecified; D64.9 Anemia, unspecified; E78.2 Mixed hyperlipidemia

== ENCOUNTER → 2022-09-12 | Outpatient (CLI) | payer OTHER | LOC: M WUC 08:24 | PROVIDERS: ATTEND Family Medicine | DX: R05.9 Cough, unspecified (principal) ==

== ENCOUNTER → 2022-10-03 | Outpatient (CLI) | payer OTHER ==
[~2022-10-03] MED LIST changes: +ASPI325T57 PO; +CLOP75TA99 PO; +DICL20GE TP; -PLAV1TAB2 PO; +REPA140I2 SC; +VENTAER INH
== END ==
LOC: M WHC 09:10
PROVIDERS: ATTEND Family Medicine
DX: N64.4 Mastodynia (principal); N60.02 Solitary cyst of left breast
CPT/HCPCS: 76642; 77066; G0279

== ENCOUNTER → 2022-10-08 | Outpatient (CLI) | payer OTHER | LOC: M LABSMTC 11:19 | PROVIDERS: ATTEND Anesthesiology | DX: Z01.812 Encounter for preprocedural laboratory examination (principal); Z11.52 Encounter for screening for COVID-19 ==

== ENCOUNTER 2022-10-11 07:38 | Day surgery (SDC) | payer OTHER ==
[~2022-10-11] VITALS: Ht 162.6 cm; Wt 73.0 kg
[~2022-10-11 07:38] MED LIST changes: +NS 1,000 ML IV ONE
[2022-10-11] MEDS ORDERED: propofoL 200 MG/20 ML VIAL As Ordered ONE (09:17)
[2022-10-11] MEDS ORDERED: LIDOCAINE 2% 100MG/5ML SDV (FOR ANES.) As Ordered ONE (09:17)
[2022-10-11] MEDS ORDERED: METOPROLOL 5 MG/5 ML VIAL As Ordered ONE (09:22)
[2022-10-11 10:03] VITALS: BP 125/58
== END 2022-10-11 10:13 | disposition home or self-care (01) ==
LOC: M OPP 07:38
PROVIDERS: ATTEND Internal Medicine Gastroenterology
DX: Z86.010 Personal history of colon polyps (principal); D12.3 Benign neoplasm of transverse colon; D12.5 Benign neoplasm of sigmoid colon; K57.30 Diverticulosis of large intestine without perforation or abscess without bleeding; K64.4 Residual hemorrhoidal skin tags; K64.8 Other hemorrhoids; Z79.02 Long term (current) use of antithrombotics/antiplatelets; Z79.1 Long term (current) use of non-steroidal anti-inflammatories (NSAID); Z79.51 Long term (current) use of inhaled steroids; Z79.84 Long term (current) use of oral hypoglycemic drugs; Z79.899 Other long term (current) drug therapy; Z88.2 Allergy status to sulfonamides; Z88.4 Allergy status to anesthetic agent; Z88.6 Allergy status to analgesic agent; Z88.8 Allergy status to other drugs, medicaments and biological substances; Z91.013 Allergy to seafood; I20.9 Angina pectoris, unspecified; I25.2 Old myocardial infarction; E11.9 Type 2 diabetes mellitus without complications; I10 Essential (primary) hypertension; E78.00 Pure hypercholesterolemia, unspecified; G60.9 Hereditary and idiopathic neuropathy, unspecified; Z95.5 Presence of coronary angioplasty implant and graft

== ENCOUNTER → 2022-12-28 | Outpatient (CLI) | payer OTHER, MEDICARE ==
[~2022-12-28] MED LIST changes: -NS 1,000 ML IV ONE
== END ==
LOC: M WUC 10:45
PROVIDERS: ATTEND Family Medicine
DX: M25.511 Pain in right shoulder (principal); M54.2 Cervicalgia; M47.812 Spondylosis without myelopathy or radiculopathy, cervical region; M48.02 Spinal stenosis, cervical region; M19.011 Primary osteoarthritis, right shoulder

== ENCOUNTER → 2023-05-23 | Outpatient (CLI) | payer MEDICARE ==
[2023-05-23 13:24] LABS: BASO % 0.6 % (0.0-1.0); EOS # 0.2 10^3/uL (0.0-0.5); EOS % 2.1 % (0.0-3.0); HEMATOCRIT 39.2 % (36.0-47.0); HEMOGLOBIN 12.6 g/dl (12.0-15.5); LYMPH # 1.1 10^3/uL (1.5-5.0); LYMPH % 15.6 % (24.0-44.0); MEAN CORPUSCULAR HEMOGLOBIN 28.1 pg (27.0-33.0); MEAN CORPUSCULAR HGB CONC 32.1 g/dl (32.0-36.5); MEAN CORPUSCULAR VOLUME 87.3 fl (80.0-96.0); MONO # 0.5 10^3/uL (0.0-0.8); MONO % 7.5 % (2.0-8.0); NEUTROPHILS # 5.2 10^3/uL (1.5-8.5); NEUTROPHILS % 73.5 % (36.0-66.0); PLATELET COUNT, AUTOMATED 375 10^3/uL (150-450); RED BLOOD COUNT 4.49 10^6/uL (4.00-5.40); WHITE BLOOD COUNT 7.1 10^3/uL (4.0-10.0)
[2023-05-23 13:44] LABS: CREATININE, URINE 228.2 MG/DL
[2023-05-23 13:45] LABS: ALBUMIN 3.9 G/DL (3.2-5.2); ALKALINE PHOSPHATASE 75 U/L (46-116); ALT/SGPT 15 U/L (7.0-40); AST/SGOT 11 U/L (<34); BILIRUBIN,TOTAL 0.6 MG/DL (0.3-1.2); BLOOD UREA NITROGEN 12 MG/DL (9-23); CALCIUM LEVEL 9.9 MG/DL (8.3-10.6); CARBON DIOXIDE LEVEL 33 MMOL/L (20-31); CHLORIDE LEVEL 98 MMOL/L (98-107); CHOLESTEROL LEVEL 165 MG/DL (<200); CREATININE FOR GFR 0.73 MG/DL (0.55-1.30); GLOMERULAR FILTRATION RATE > 60.0 (>39); GLUCOSE, FASTING 107 MG/DL (74-106); HDL CHOLESTEROL 58.8 MG/DL (>40); LDL CHOLESTEROL 52.2 MG/DL (<100); NON-HDL-C 106.2 MG/DL; POTASSIUM SERUM 3.8 MMOL/L (3.5-5.1); SODIUM LEVEL 137 MMOL/L (136-145); TOTAL PROTEIN 7.2 G/DL (5.7-8.2); TRIGLYCERIDES LEVEL 270 MG/DL (<150)
[2023-05-23 13:46] LABS: MAU/CREAT RATIO 2.1 MCG/MG (0.0-30.0)
[2023-05-23 18:01] LABS: HEMOGLOBIN A1c 5.9 % (4.0-6.0)
== END ==
LOC: M WUC 10:15
PROVIDERS: ATTEND Family Medicine
DX: E11.9 Type 2 diabetes mellitus without complications (principal); E78.2 Mixed hyperlipidemia

== ENCOUNTER → 2023-08-08 | Outpatient (CLI) | payer MEDICARE ==
[~2023-08-08] MED LIST changes: -GABA-283 PO; +GABA-284 PO
[2023-08-08 19:08] LABS: APPEARANCE, URINE HAZY (CLEAR); BACTERIA, URINE AUTO NEGATIVE (NEGATIVE); BILIRUBIN, URINE AUTO 1+ (NEGATIVE); BLOOD, URINE BLOOD NEGATIVE (NEGATIVE); COLOR, URINE AMBER (YELLOW); GLUCOSE, URINE (UA) AUTO NEGATIVE (NEGATIVE); KETONE, URINE AUTO NEGATIVE (NEGATIVE); LEUKOCYTE ESTERASE, URINE AUTO TRACE (NEGATIVE); MUCUS, URINE SMALL (NEGATIVE); NITRITE, URINE AUTO NEGATIVE (NEGATIVE); PROTEIN, URINE AUTO 1+ mg/dL (NEGATIVE); RBC, URINE AUTO 2 /HPF (0-3); SPECIFIC GRAVITY URINE AUTO 1.028 (1.002-1.035); SQUAMOUS EPITHELIAL CELL UR AU 1 /HPF (0-6); WBC, URINE AUTO 5 /HPF (0-3)
[2023-08-08 19:28] LABS: ALKALINE PHOSPHATASE 77 U/L (46-116); ALT/SGPT 21 U/L (7.0-40); AST/SGOT 13 U/L (<34); BILIRUBIN,TOTAL 0.6 MG/DL (0.3-1.2); BLOOD UREA NITROGEN 15 MG/DL (9-23); CALCIUM LEVEL 9.5 MG/DL (8.3-10.6); CARBON DIOXIDE LEVEL 32 MMOL/L (20-31); CHLORIDE LEVEL 100 MMOL/L (98-107); CREATININE FOR GFR 0.77 MG/DL (0.55-1.30); GLOMERULAR FILTRATION RATE > 60.0 (>39); GLUCOSE, FASTING 113 MG/DL (74-106); POTASSIUM SERUM 4.4 MMOL/L (3.5-5.1); SODIUM LEVEL 140 MMOL/L (136-145); TOTAL PROTEIN 7.2 G/DL (5.7-8.2)
[2023-08-08 20:05] LABS: HEMATOCRIT 38.4 % (36.0-47.0); HEMOGLOBIN 12.1 g/dl (12.0-15.5); MEAN CORPUSCULAR HEMOGLOBIN 27.9 pg (27.0-33.0); MEAN CORPUSCULAR HGB CONC 31.5 g/dl (32.0-36.5); MEAN CORPUSCULAR VOLUME 88.5 fl (80.0-96.0); PLATELET COUNT, AUTOMATED 384 10^3/uL (150-450); RED BLOOD COUNT 4.34 10^6/uL (4.00-5.40)
== END ==
LOC: M WUC 10:35
PROVIDERS: ATTEND Internal Medicine Cardiovascular Disease
DX: M75.101 Unspecified rotator cuff tear or rupture of right shoulder, not specified as traumatic (principal); M75.51 Bursitis of right shoulder

== ENCOUNTER → 2023-08-08 | Outpatient (CLI) | payer MEDICARE ==
[2023-08-08 18:56] LABS: APPEARANCE, URINE HAZY (CLEAR); BACTERIA, URINE AUTO NEGATIVE (NEGATIVE); BILIRUBIN, URINE AUTO 1+ (NEGATIVE); BLOOD, URINE BLOOD NEGATIVE (NEGATIVE); GLUCOSE, URINE (UA) AUTO NEGATIVE (NEGATIVE); KETONE, URINE AUTO NEGATIVE (NEGATIVE); LEUKOCYTE ESTERASE, URINE AUTO TRACE (NEGATIVE); MUCUS, URINE SMALL (NEGATIVE); NITRITE, URINE AUTO NEGATIVE (NEGATIVE); PROTEIN, URINE AUTO 1+ mg/dL (NEGATIVE); RBC, URINE AUTO 3 /HPF (0-3); SPECIFIC GRAVITY URINE AUTO 1.029 (1.002-1.035); SQUAMOUS EPITHELIAL CELL UR AU 3 /HPF (0-6); WBC, URINE AUTO 5 /HPF (0-3)
[2023-08-08 18:58] LABS: COLOR, URINE YELLOW (YELLOW)
[2023-08-08 19:25] LABS: BASO % 0.3 % (0.0-1.0); EOS # 0.2 10^3/uL (0.0-0.5); EOS % 1.5 % (0.0-3.0); HEMATOCRIT 38.6 % (36.0-47.0); HEMOGLOBIN 12.1 g/dl (12.0-15.5); LYMPH # 1.3 10^3/uL (1.5-5.0); LYMPH % 13.3 % (24.0-44.0); MEAN CORPUSCULAR HEMOGLOBIN 27.8 pg (27.0-33.0); MEAN CORPUSCULAR HGB CONC 31.3 g/dl (32.0-36.5); MEAN CORPUSCULAR VOLUME 88.7 fl (80.0-96.0); MONO # 0.6 10^3/uL (0.0-0.8); NEUTROPHILS # 7.9 10^3/uL (1.5-8.5); NEUTROPHILS % 78.5 % (36.0-66.0); PLATELET COUNT, AUTOMATED 389 10^3/uL (150-450); RED BLOOD COUNT 4.35 10^6/uL (4.00-5.40); WHITE BLOOD COUNT 10.1 10^3/uL (4.0-10.0)
[2023-08-08 19:28] LABS: ALBUMIN 3.9 G/DL (3.2-5.2); ALKALINE PHOSPHATASE 77 U/L (46-116); ALT/SGPT 22 U/L (7.0-40); AST/SGOT 12 U/L (<34); BILIRUBIN,TOTAL 0.6 MG/DL (0.3-1.2); BLOOD UREA NITROGEN 14 MG/DL (9-23); CALCIUM LEVEL 9.4 MG/DL (8.3-10.6); CARBON DIOXIDE LEVEL 31 MMOL/L (20-31); CHLORIDE LEVEL 100 MMOL/L (98-107); CREATININE FOR GFR 0.77 MG/DL (0.55-1.30); GLOMERULAR FILTRATION RATE > 60.0 (>39); GLUCOSE, FASTING 113 MG/DL (74-106); POTASSIUM SERUM 4.3 MMOL/L (3.5-5.1); SODIUM LEVEL 139 MMOL/L (136-145); TOTAL PROTEIN 7.2 G/DL (5.7-8.2)
== END ==
LOC: M WUC 10:32
PROVIDERS: ATTEND Family Medicine
DX: Z01.818 Encounter for other preprocedural examination (principal)

== ENCOUNTER → 2024-03-27 | Outpatient (CLI) | payer MEDICARE ==
[2024-03-27 12:45] LABS: ALBUMIN 3.5 G/DL (3.2-5.2); ALKALINE PHOSPHATASE 81 U/L (46-116); ALT/SGPT 16 U/L (7.0-40); AST/SGOT 15 U/L (<34); BILIRUBIN,TOTAL 0.4 MG/DL (0.3-1.2); BLOOD UREA NITROGEN 16 MG/DL (9-23); CALCIUM LEVEL 9.5 MG/DL (8.3-10.6); CARBON DIOXIDE LEVEL 33 MMOL/L (20-31); CHLORIDE LEVEL 102 MMOL/L (98-107); CREATININE FOR GFR 0.82 MG/DL (0.55-1.30); GLOMERULAR FILTRATION RATE > 60.0 (>39); GLUCOSE, FASTING 129 MG/DL (74-106); POTASSIUM SERUM 4.8 MMOL/L (3.5-5.1); SODIUM LEVEL 139 MMOL/L (136-145); TOTAL PROTEIN 6.9 G/DL (5.7-8.2)
[2024-03-27 13:00] LABS: HEMOGLOBIN A1c 6.3 % (4.0-6.0)
[2024-03-27 13:21] LABS: CREATININE, URINE 257.7 MG/DL; MAU/CREAT RATIO 3.8 MCG/MG (0.0-30.0)
== END ==
LOC: M WUC 09:15
PROVIDERS: ATTEND Family Medicine
DX: E11.9 Type 2 diabetes mellitus without complications (principal)

== ENCOUNTER → 2024-05-21 | Outpatient (REF) | payer MEDICARE | LOC: M SFHCDERM 11:12 | PROVIDERS: ATTEND Nurse Practitioner Family | DX: D22.0 Melanocytic nevi of lip (principal); L57.8 Other skin changes due to chronic exposure to nonionizing radiation ==

== ENCOUNTER → 2024-08-10 | Outpatient (REF) | payer MEDICARE ==
[2024-08-10 18:31] LABS: APPEARANCE, URINE HAZY (CLEAR); BACTERIA, URINE AUTO NEGATIVE (NEGATIVE); BILIRUBIN, URINE AUTO NEGATIVE (NEGATIVE); BLOOD, URINE BLOOD NEGATIVE (NEGATIVE); COLOR, URINE YELLOW (YELLOW); GLUCOSE, URINE (UA) AUTO NEGATIVE (NEGATIVE); KETONE, URINE AUTO NEGATIVE (NEGATIVE); LEUKOCYTE ESTERASE, URINE AUTO NEGATIVE (NEGATIVE); NITRITE, URINE AUTO NEGATIVE (NEGATIVE); PROTEIN, URINE AUTO NEGATIVE (NEGATIVE); RBC, URINE AUTO 0 /HPF (0-3); SPECIFIC GRAVITY URINE AUTO 1.013 (1.002-1.035); SQUAMOUS EPITHELIAL CELL UR AU 0 /HPF (0-6); UROBILINOGEN, URINE AUTO 0.2 mg/dL (0.0-2.0); WBC, URINE AUTO 0 /HPF (0-3)
[2024-08-10 18:49] LABS: HEMOGLOBIN A1c 6.1 % (4.0-6.0)
[2024-08-10 18:53] LABS: CREATININE, URINE 56.3 MG/DL; MALB URINE SIEMENS < 3.0 MG/L; MAU/CREAT RATIO 5.3 MCG/MG (0.0-30.0)
[2024-08-10 18:54] LABS: BLOOD UREA NITROGEN 17 MG/DL (9-23); CALCIUM LEVEL 9.2 MG/DL (8.3-10.6); CARBON DIOXIDE LEVEL 31 MMOL/L (20-31); CHLORIDE LEVEL 101 MMOL/L (98-107); CREATININE FOR GFR 0.82 MG/DL (0.55-1.30); GLOMERULAR FILTRATION RATE > 60.0 (>39); GLUCOSE, FASTING 85 MG/DL (74-106); POTASSIUM SERUM 4.5 MMOL/L (3.5-5.1); SODIUM LEVEL 138 MMOL/L (136-145)
== END ==
LOC: M SFHCLERA 14:09
PROVIDERS: ATTEND Family Medicine
DX: I10 Essential (primary) hypertension (principal); R34 Anuria and oliguria; E11.42 Type 2 diabetes mellitus with diabetic polyneuropathy

== ENCOUNTER → 2025-02-25 | Outpatient (CLI) | payer MEDICARE ==
[2025-02-25 12:41] LABS: BASO % 0.4 % (0.0-1.0); EOS # 0.2 10^3/uL (0.0-0.5); EOS % 2.1 % (0.0-3.0); HEMATOCRIT 28.6 % (36.0-47.0); HEMOGLOBIN 8.4 g/dl (12.0-15.5); LYMPH # 1.3 10^3/uL (1.5-5.0); LYMPH % 15.4 % (24.0-44.0); MEAN CORPUSCULAR HEMOGLOBIN 21.2 pg (27.0-33.0); MEAN CORPUSCULAR HGB CONC 29.4 g/dl (32.0-36.5); MEAN CORPUSCULAR VOLUME 72.2 fl (80.0-96.0); MONO # 0.7 10^3/uL (0.0-0.8); MONO % 8.2 % (2.0-8.0); NEUTROPHILS # 6.3 10^3/uL (1.5-8.5); NEUTROPHILS % 73.5 % (36.0-66.0); PLATELET COUNT, AUTOMATED 550 10^3/uL (150-450); RED BLOOD COUNT 3.96 10^6/uL (4.00-5.40); WHITE BLOOD COUNT 8.5 10^3/uL (4.0-10.0)
[2025-02-25 13:33] LABS: ALBUMIN 3.5 G/DL (3.2-5.2); ALKALINE PHOSPHATASE 85 U/L (35-104); ALT/SGPT 15 U/L (7.0-40); AST/SGOT 13 U/L (<34); BILIRUBIN,TOTAL 0.4 MG/DL (0.3-1.2); BLOOD UREA NITROGEN 15 MG/DL (9-23); CALCIUM LEVEL 9.5 MG/DL (8.3-10.6); CARBON DIOXIDE LEVEL 32 MMOL/L (20-31); CHLORIDE LEVEL 100 MMOL/L (98-107); CHOLESTEROL LEVEL 148 MG/DL (<200); CHOLESTEROL RISK RATIO 3.15 (<5); CREATININE FOR GFR 0.77 MG/DL (0.55-1.30); GLOMERULAR FILTRATION RATE > 60.0 (>39); GLUCOSE, FASTING 136 MG/DL (74-106); HDL CHOLESTEROL 46.9 MG/DL (>40); LDL CHOLESTEROL 51.3 MG/DL (<100); NON-HDL-C 101.1 MG/DL; POTASSIUM SERUM 4.2 MMOL/L (3.5-5.1); SODIUM LEVEL 140 MMOL/L (136-145); TOTAL PROTEIN 7.1 G/DL (5.7-8.2); TRIGLYCERIDES LEVEL 249 MG/DL (<150)
[2025-02-25 14:09] LABS: CREATININE, URINE 270.5 MG/DL
== END ==
LOC: M WUC 09:26
PROVIDERS: ATTEND Family Medicine
DX: Z00.00 Encounter for general adult medical examination without abnormal findings (principal); E11.9 Type 2 diabetes mellitus without complications; E78.2 Mixed hyperlipidemia

== ENCOUNTER → 2025-03-05 | Outpatient (CLI) | payer MEDICARE ==
[2025-03-05 14:14] LABS: BASO % 0.3 % (0.0-1.0); EOS # 0.3 10^3/uL (0.0-0.5); EOS % 2.6 % (0.0-3.0); HEMATOCRIT 30.1 % (36.0-47.0); HEMOGLOBIN 8.5 g/dl (12.0-15.5); IRON (FE) 20 UG/DL (50-170); LYMPH # 1.2 10^3/uL (1.5-5.0); LYMPH % 12.4 % (24.0-44.0); MEAN CORPUSCULAR HEMOGLOBIN 20.9 pg (27.0-33.0); MEAN CORPUSCULAR HGB CONC 28.2 g/dl (32.0-36.5); MONO # 0.8 10^3/uL (0.0-0.8); NEUTROPHILS # 7.3 10^3/uL (1.5-8.5); NEUTROPHILS % 76.3 % (36.0-66.0); PERCENT SATURATION 4.9 % (13.2-45.0); PLATELET COUNT, AUTOMATED 427 10^3/uL (150-450); RED BLOOD COUNT 4.07 10^6/uL (4.00-5.40); TOTAL IRON BINDING CAPACITY 410 UG/DL (250-425); WHITE BLOOD COUNT 9.6 10^3/uL (4.0-10.0)
[2025-03-05 14:15] LABS: ALBUMIN 3.6 G/DL (3.2-5.2); ALKALINE PHOSPHATASE 77 U/L (35-104); ALT/SGPT 13 U/L (7.0-40); AST/SGOT 14 U/L (<34); BILIRUBIN,TOTAL 0.5 MG/DL (0.3-1.2); BLOOD UREA NITROGEN 19 MG/DL (9-23); CARBON DIOXIDE LEVEL 31 MMOL/L (20-31); CHLORIDE LEVEL 99 MMOL/L (98-107); CREATININE FOR GFR 0.78 MG/DL (0.55-1.30); FERRITIN 5.3 NG/ML (7.3-270.7); FOLATE > 24.00 NG/ML (>5.4); GLOMERULAR FILTRATION RATE 77.7 (>39); GLUCOSE, FASTING 143 MG/DL (74-106); POTASSIUM SERUM 4.3 MMOL/L (3.5-5.1); SODIUM LEVEL 140 MMOL/L (136-145); TOTAL PROTEIN 6.9 G/DL (5.7-8.2)
[2025-03-05 14:16] LABS: VITAMIN B12 LEVEL > 2000 PG/ML (211-911)
== END ==
LOC: M WUC 08:36
PROVIDERS: ATTEND Family Medicine
DX: D64.9 Anemia, unspecified (principal)

== ENCOUNTER → 2025-03-08 | Outpatient (REF) | payer MEDICARE | LOC: M SFHCLERA 13:38 | PROVIDERS: ATTEND Family Medicine | DX: D50.9 Iron deficiency anemia, unspecified (principal) ==

== ENCOUNTER → 2025-06-29 | Outpatient (CLI) | payer MEDICARE ==
[~2025-06-29] MED LIST changes: +B-12100010 PO; +FERR325T3; +MM S100C PO
[2025-06-29 12:19] LABS: BASO # 0.0 10^3/uL (0.0-0.2); BASO % 0.5 % (0.0-1.0); EOS # 0.4 10^3/uL (0.0-0.5); EOS % 5.0 % (0.0-3.0); LYMPH # 1.5 10^3/uL (1.5-5.0); LYMPH % 18.6 % (24.0-44.0); MONO # 0.7 10^3/uL (0.0-0.8); MONO % 8.3 % (2.0-8.0); NEUTROPHILS # 5.3 10^3/uL (1.5-8.5); NEUTROPHILS % 67.2 % (36.0-66.0); PLATELET COUNT, AUTOMATED 379 10^3/uL (150-450)
[2025-06-29 12:34] LABS: APPEARANCE, URINE HAZY (CLEAR); BACTERIA, URINE AUTO NEGATIVE (NEGATIVE); BILIRUBIN, URINE AUTO NEGATIVE (NEGATIVE); BLOOD, URINE BLOOD NEGATIVE (NEGATIVE); GLUCOSE, URINE (UA) AUTO NEGATIVE (NEGATIVE); KETONE, URINE AUTO TRACE mg/dL (NEGATIVE); LEUKOCYTE ESTERASE, URINE AUTO TRACE (NEGATIVE); MUCUS, URINE SMALL (NEGATIVE); NITRITE, URINE AUTO NEGATIVE (NEGATIVE); PROTEIN, URINE AUTO NEGATIVE (NEGATIVE); RBC, URINE AUTO 3 /HPF (0-3); SPECIFIC GRAVITY URINE AUTO 1.026 (1.002-1.035); SQUAMOUS EPITHELIAL CELL UR AU 2 /HPF (0-6); UROBILINOGEN, URINE AUTO 2.0 mg/dL (0.0-2.0); WBC, URINE AUTO 2 /HPF (0-3)
[2025-06-29 12:47] LABS: IRON (FE) 25.0 UG/DL (50-170); PERCENT SATURATION 6.4 % (13.2-45.0)
[2025-06-29 12:48] LABS: ALT/SGPT 13.0 U/L (7.0-40); AST/SGOT 16.0 U/L (<34); CALCIUM LEVEL 9.2 MG/DL (8.3-10.6); CARBON DIOXIDE LEVEL 31.0 MMOL/L (20-31); CHLORIDE LEVEL 99.0 MMOL/L (98-107); CREATININE FOR GFR 0.8 MG/DL (0.55-1.30); GLOMERULAR FILTRATION RATE 75.4 (>39); POTASSIUM SERUM 4.0 MMOL/L (3.5-5.1); SODIUM LEVEL 139.0 MMOL/L (136-145)
== END ==
LOC: M WUC 10:30
PROVIDERS: ATTEND Specialist
DX: D50.9 Iron deficiency anemia, unspecified (principal)

== ENCOUNTER 2025-08-20 10:23 | Day surgery (SDC) | payer MEDICARE ==
[~2025-08-20] VITALS: Ht 162.6 cm; Wt 71.2 kg
[~2025-08-20 10:23] MED LIST changes: +ASPI81TA26 PO; -FERR325T3; +FERR325T3 PO
[2025-08-20] MEDS ORDERED: LIDOCAINE 2% 100 MG/5 ML SDV (FOR ANES.) As Ordered ONE (12:06)
[2025-08-20 12:57] VITALS: TEMP 97.5
[2025-08-20 13:15] VITALS: BP 136/61; O2SAT 98
== END 2025-08-20 13:30 | disposition home or self-care (01) ==
LOC: M OPP 10:23
PROVIDERS: ATTEND Internal Medicine Gastroenterology
DX: D12.2 Benign neoplasm of ascending colon (principal); D12.4 Benign neoplasm of descending colon; K64.8 Other hemorrhoids; K57.30 Diverticulosis of large intestine without perforation or abscess without bleeding; D50.0 Iron deficiency anemia secondary to blood loss (chronic); K44.9 Diaphragmatic hernia without obstruction or gangrene; K57.10 Diverticulosis of small intestine without perforation or abscess without bleeding; K31.7 Polyp of stomach and duodenum; K31.89 Other diseases of stomach and duodenum; Z86.73 Personal history of transient ischemic attack (TIA), and cerebral infarction without residual deficits; Z95.5 Presence of coronary angioplasty implant and graft; Z88.2 Allergy status to sulfonamides; Z88.8 Allergy status to other drugs, medicaments and biological substances; Z91.048 Other nonmedicinal substance allergy status; Z79.82 Long term (current) use of aspirin; Z79.84 Long term (current) use of oral hypoglycemic drugs

== ENCOUNTER 2025-10-29 09:56 | Outpatient (CLI) | payer MEDICARE ==
[~2025-10-29] VITALS: Ht 160 cm; Wt 70.5 kg
[~2025-10-29 09:56] MED LIST changes: +ALBUTEROL SULFATE 2.5 MG/0.5 ML INH CONCENTRATE NEB SOLN INH PRN; +EPINEPHrine INJ 1 MG/ML 1ML AMP IM PRN; +diphenhydrAMINE 50 MG/ML VIAL IV PRN
[2025-10-29 10:00] VITALS: BP 147/68; O2SAT 98
[2025-10-29] MEDS: ACETAMINOPHEN 650 MG PO ONE (10:13)
[2025-10-29] MEDS: IRON SUCROSE 300 MG in NS 250 ML IV ONE (10:43)
[2025-10-29 12:35] VITALS: BP 139/71; O2SAT 98
== END 2025-10-29 12:35 | disposition home or self-care (01) ==
LOC: M INFU 09:56
PROVIDERS: ATTEND Student in an Organized Health Care Education/Training Program
DX: D50.9 Iron deficiency anemia, unspecified (principal); Z91.048 Other nonmedicinal substance allergy status
CPT/HCPCS: 96365; 96366; J1756

== ENCOUNTER 2025-11-02 16:28 | Emergency (ER) | payer MEDICARE ==
[~2025-11-02] VITALS: Ht 162.6 cm; Wt 72.6 kg
[~2025-11-02 16:28] MED LIST changes: -ALBUTEROL SULFATE 2.5 MG/0.5 ML INH CONCENTRATE NEB SOLN INH PRN; -EPINEPHrine INJ 1 MG/ML 1ML AMP IM PRN; -diphenhydrAMINE 50 MG/ML VIAL IV PRN
[2025-11-02 16:56] LABS: BASO # 0.0 10^3/uL (0.0-0.2); BASO % 0.5 % (0.0-1.0); EOS # 0.2 10^3/uL (0.0-0.5); EOS % 2.7 % (0.0-3.0); LYMPH # 2.6 10^3/uL (1.5-5.0); LYMPH % 29.9 % (24.0-44.0); MONO # 0.9 10^3/uL (0.0-0.8); MONO % 9.9 % (2.0-8.0); NEUTROPHILS # 4.9 10^3/uL (1.5-8.5); NEUTROPHILS % 56.1 % (36.0-66.0); PLATELET COUNT, AUTOMATED 359 10^3/uL (150-450)
[2025-11-02 17:28] LABS: CK-MB VALUE MASS 1.1 NG/ML (<3.6); INR 0.95
[2025-11-02 17:30] LABS: ALT/SGPT 17 U/L (7.0-40); AST/SGOT 18 U/L (<34); CALCIUM LEVEL 9.3 MG/DL (8.3-10.6); CARBON DIOXIDE LEVEL 32 MMOL/L (20-31); CHLORIDE LEVEL 100 MMOL/L (98-107); CREATININE FOR GFR 0.83 MG/DL (0.55-1.30); GLOMERULAR FILTRATION RATE 71.7 (>39); POTASSIUM SERUM 4.6 MMOL/L (3.5-5.1); SODIUM LEVEL 140 MMOL/L (136-145)
[2025-11-02 17:36] LABS: CPK CREATINE PHOSPHOKINASE 48 U/L (34-145); MB/CK RELATIVE INDEX 2.29 (< OR =4)
[2025-11-02] MEDS: ASPIRIN 81 MG CHEWABLE TABLET PO ONE (17:47)
[2025-11-02] MEDS: PANTOPRAZOLE 40MG VIAL IV ONE (17:47)
[2025-11-02] MEDS: NITROGLYCERIN 0.4 MG SUBL TABLET SL PRN (18:07)
[2025-11-02 18:13] VITALS: BP 109/61
[2025-11-02] MEDS ORDERED: HEPARIN SOD 5000 UNITS/ML 1 ML VIAL/SYRINGE IV ONE (18:50)
[2025-11-02] MEDS ORDERED: HEPARIN SOD 5000 UNITS/ML 1 ML VIAL/SYRINGE IV PRN (18:50)
[2025-11-02] MEDS: HEPARIN SOD 5000 UNITS/ML 1 ML VIAL/SYRINGE IV ONE (19:35)
[2025-11-02] MEDS: HEPARIN DRIP 25,000 UNITS in IV 1 EA IV SCH (19:35)
[2025-11-02 20:34] VITALS: BP 131/68; TEMP 96.7; O2SAT 99
== END 2025-11-02 20:40 | disposition short-term general hospital (02) ==
LOC: M ED 16:28
DX: I20.0 Unstable angina (principal); E11.9 Type 2 diabetes mellitus without complications; I10 Essential (primary) hypertension; K21.9 Gastro-esophageal reflux disease without esophagitis; D50.9 Iron deficiency anemia, unspecified; E78.5 Hyperlipidemia, unspecified; I25.2 Old myocardial infarction; Z86.79 Personal history of other diseases of the circulatory system; Z88.8 Allergy status to other drugs, medicaments and biological substances; Z91.09 Other allergy status, other than to drugs and biological substances; Z79.82 Long term (current) use of aspirin; Z79.52 Long term (current) use of systemic steroids; Z79.899 Other long term (current) drug therapy; Z79.4 Long term (current) use of insulin
CPT/HCPCS: 71045; 80053; 82248; 82550; 82553; 83690; 84484; 85025; 85610; 85730; 93005; 93041; 94760; 96365; 96375; 99285; J2470